=== PATIENT | male | born 1975 | race Caucasian/White ===

== ENCOUNTER 2017-07-19 09:43 | Emergency (ER) | payer OTHER ==
[2017-07-19] MEDS ORDERED: RX INFO: IV CONTRAST WAS GIVEN 1 EACH MISC MISCELLANE PRN (09:53)
[2017-07-19 10:30] LABS: Basophils % (A) 0 %; CH 34.4; CHCM 36.2; Eosinophils # (A) 0.2 k/uL (0-0.7); Eosinophils % (A) 3 %; HCT 43.9 % (39.0-53.0); HDW 2.97; HGB 15.6 gm/dL (13.0-17.5); Luc # (Auto) 0.09; Luc % (Auto) 1; Lymphocytes # (A) 1.1 k/uL (1.0-4.8); Lymphocytes % (A) 13 %; MCH 33.8 pg (25.0-35.0); MCHC 35.4 g/dL (31.0-37.0); MCV 95.3 fL (80.0-100.0); Mean Platelet Volume 7.2; Monocytes # (A) 0.3 k/uL (0-1.0); Monocytes % (A) 4 %; Neutrophils # (A) 6.3 k/uL (1.3-7.7); Neutrophils % (A) 79 %; RDW 13.2 % (11.5-15.5); WBC (Perox) 8.19
[2017-07-19 10:41] LABS: ALT 110 U/L (21-72); AST 69 U/L (17-59); Alkaline Phosphatase 47 U/L (38-126); Amylase 125 U/L (30-110); Anion Gap 13 mmol/L; Blood Urea Nitrogen 15 mg/dL (9-20); Carbon Dioxide 20 mmol/L (22-30); Chloride 106 mmol/L (98-107); Glucose 110 mg/dL (74-99); Non-African American GFR(MDRD) >60 (>60 ml/min/1.73 sqM); Potassium 3.7 mmol/L (3.5-5.1); Sodium 139 mmol/L (137-145); Total Protein 7.2 g/dL (6.3-8.2)
--- NOTE | 2017-07-19 10:47 | CT ---
EXAMINATION TYPE: CT soft tissue neck w con DATE OF EXAM: 07/19/2017 HISTORY: bilateral neck swelling/pain x 1 day COMPARISON: NONE CT DLP: 785 mGycm. Automated Exposure Control for Dose Reduction was Utilized. TECHNIQUE: CT scan of the neck is performed with IV Contrast, patient injected with 100 mL of Omnipa que 300, axial images are obtained, coronal and sagittal reformatted images are reviewed. FINDINGS: Airway: Some secretions are felt filling the vallecula. Nasopharyngeal airway is patent. Thyroid glan d is within normal limits. Mild edematous change is seen in the lung apices. Parotid/submandibular glands: No gross abnormality seen. Carotid/Vascular Structures: No significant plaque or stenosis is seen in the carotid bulb level bila terally. Osseous Structures: There is straightening of cervical spine. There is moderate disc space narrowing and spurring C5-C6 level. Other: There is mild nonspecific fluid and fat stranding over the platysmas muscles which are mildly thickened bilaterally in the bilateral submandibular region with some scattered prominent but subcent imeter lymph nodes identified bilaterally. For reference left carotid space lymph node measures 1.4 x 0.8 cm on axial image 39, similar size lymph node is seen right carotid space on same image. No well -formed fluid collection or drainable abscess is present. IMPRESSION: Nonspecific inflammatory change bilaterally at submandibular level without drainable absc ess. Airway remains patent. Etiology uncertain.
--- NOTE | 2017-07-19 11:27 | ED ---
Recheck HPI - General Chief Complaint: Recheck/Abnormal Lab/Rx Stated Complaint: Syncope Time Seen by Provider: 07/19/17 09:47 Source: patient, EMS, RN notes reviewed Mode of arrival: EMS Limitations: no limitations - History of Present Illness Initial Comments: 42-year-old male presents emergency department via EMS from [facility] for bilateral parotid gland area swelling and near syncope. Patient states that he woke this muscular for hours and went to [facility] today to be evaluated. I was very states that he had very nervous and felt lightheaded but never loss conscious. Patient states he remembers everything. Provider there was concern because he got lightheaded and septum here. Patient denies chest pain, short breath, focal weakness, nausea vomiting. Patient states that he is no felt sick last few days. Patient denies any difficulty swallowing or breathing. - Related Data Home Medications Medication Instructions Recorded Confirmed Acetaminophen Tab [Tylenol Tab] 500 mg PO Q6HR PRN 07/19/17 07/19/17 Loratadine [Claritin] 10 mg PO HS 07/19/17 07/19/17 Previous Rx's Medication Instructions Recorded Amoxicillin/Potassium Clav 1 tab PO Q12HR #20 tab 07/19/17 [Augmentin 875-125 Tablet] Allergies Allergy/AdvReac Type Severity Reaction Status Date / Time No Known Allergies Allergy Verified 07/19/17 09:55 Review of Systems ROS Statement: Those systems with pertinent positive or pertinent negative responses have been documented in the HPI. ROS Other: All systems not noted in ROS Statement are negative. Past Medical History Past Medical History: Atrial Fibrillation History of Any Multi-Drug Resistant Organisms: None Reported Past Surgical History: No Surgical Hx Reported Additional Past Surgical History / Comment(s): vasectomy Past Anesthesia/Blood Transfusion Reactions: No Reported Reaction Past Psychological History: No Psychological Hx Reported Smoking Status: Never smoker Past Alcohol Use History: Occasional Past Drug Use History: None Reported - Past Family History Mother Family Medical History: Diabetes Mellitus General Exam Limitations: no limitations General appearance: alert, in no apparent distress Head exam: Present: atraumatic, normocephalic, normal inspection Eye exam: Present: normal appearance, PERRL, EOMI. Absent: scleral icterus, conjunctival injection, periorbital swelling ENT exam: Present: normal oropharynx, mucous membranes moist, TM's normal bilaterally, normal external ear exam. Absent: normal exam (Bilateral submandibular, mandibular region swelling minimally tender) Neck exam: Present: normal inspection, full ROM, lymphadenopathy. Absent: tenderness, meningismus Respiratory exam: Present: normal lung sounds bilaterally. Absent: respiratory distress, wheezes, rales, rhonchi, stridor Cardiovascular Exam: Present: regular rate, normal rhythm, normal heart sounds. Absent: systolic murmur, diastolic murmur, rubs, gallop, clicks Neurological exam: Present: alert, oriented X3, CN II-XII intact Skin exam: Present: warm, dry, intact, normal color. Absent: rash Course Vital Signs 07/19/17 09:46 Temperature 98.4 F Pulse Rate 88 Respiratory 15 Rate Blood Pressure 127/63 O2 Sat by Pulse 95 Oximetry Medical Decision Making - Medical Decision Making 42-year-old male present emergency department for bilateral mandibular region swelling. This is evident on CT there is mild elevation in amylase and may be related to parotitis. Patient will be started on Augmentin at this time advised follow-up with ENT return parameters were discussed. - Lab Data Result diagrams: 07/19/17 10:00 07/19/17 10:00 Lab Results 07/19/17 07/19/17 07/19/17 Range/Units 10:00 10:00 10:00 WBC 8.0 (3.8-10.6) k/uL RBC 4.60 (4.30-5.90) m/uL Hgb 15.6 (13.0-17.5) gm/dL Hct 43.9 (39.0-53.0) % MCV 95.3 (80.0-100.0) fL MCH 33.8 (25.0-35.0) pg MCHC 35.4 (31.0-37.0) g/dL RDW 13.2 (11.5-15.5) % Plt Count 183 (150-450) k/uL Neutrophils % 79 % Lymphocytes % 13 % Monocytes % 4 % Eosinophils % 3 % Basophils % 0 % Neutrophils # 6.3 (1.3-7.7) k/uL Lymphocytes # 1.1 (1.0-4.8) k/uL Monocytes # 0.3 (0-1.0) k/uL Eosinophils # 0.2 (0-0.7) k/uL Basophils # 0.0 (0-0.2) k/uL Sodium 139 (137-145) mmol/L Potassium 3.7 (3.5-5.1) mmol/L Chloride 106 (98-107) mmol/L Carbon Dioxide 20 L (22-30) mmol/L Anion Gap 13 mmol/L BUN 15 (9-20) mg/dL Creatinine 0.84 (0.66-1.25) mg/dL Est GFR (MDRD) Af Amer >60 (>60 ml/min/1.73 sqM) Est GFR (MDRD) Non-Af >60 (>60 ml/min/1.73 sqM) Glucose 110 H (74-99) mg/dL Calcium 9.0 (8.4-10.2) mg/dL Total Bilirubin 1.0 (0.2-1.3) mg/dL AST 69 H (17-59) U/L ALT 110 H (21-72) U/L Alkaline Phosphatase 47 (38-126) U/L Troponin I <0.012 (0.000-0.034) ng/mL Total Protein 7.2 (6.3-8.2) g/dL Albumin 4.3 (3.5-5.0) g/dL Amylase 125 H (30-110) U/L Lipase 61 (23-300) U/L 07/19/17 11:22 EKG performed at 10:04 normal sinus rhythm with a rate of 75. TN interval 170 QS duration 92 QT/QTC 374/417 Disposition Clinical Impression: Parotitis, acute, Submandibular lymphadenopathy Disposition: HOME SELF-CARE Condition: Stable Instructions: Sialoadenitis (ED), Lymphadenopathy (ED) Additional Instructions: Please return to the Emergency Department if symptoms worsen or any other concerns. Prescriptions: Amoxicillin/Potassium Clav [Augmentin 875-125 Tablet] 1 tab PO Q12HR #20 tab Referrals: Alhaji Rogers DO [Primary Care Provider] - 1-2 days Rojas Collado MD [STAFF PHYSICIAN] - 1-2 days Time of Disposition: 11:22
[2017-07-19 11:40] VITALS: BP 114/62; PULSE 76; RESP 16; TEMP 97.8
== END 2017-07-19 11:39 | disposition home or self-care (01) ==
LOC: EC 09:43
DX: K11.21 Acute sialoadenitis (principal); R59.0 Localized enlarged lymph nodes; Z79.899 Other long term (current) drug therapy
CPT/HCPCS: 99285 ×2; 36415; 93005; 80053; 82150; 83690; 84484; 85025; 87040; 70491; Q9967

== ENCOUNTER → 2017-12-29 | Outpatient (CLI) | payer OTHER ==
--- NOTE | 2017-12-29 16:26 | CT ---
EXAMINATION TYPE: CT soft tissue neck w con DATE OF EXAM: 12/29/2017 COMPARISON: 07/19/2017 HISTORY: Right tonsil mass. CT DLP: 676.8 mGycm CONTRAST: CT scan of the neck is performed with IV Contrast, patient injected with 100 mL of Isovue M300. Contrast enhanced CT of the neck was performed from the skull base through the lung apices. AIRWAY: The glottic and subglottic portions of the airway appear patent and free of mass. Mild full ness right tonsillar pillar without distinct mass. Correlate clinically. SALIVARY GLANDS: The right submandibular gland appears to have been removed in the interval. Left sub mandibular gland is unremarkable. Parotid glands are symmetric and free of nodule or mass. THYROID GLAND: No nodules or masses seen. LYMPH NODES: No adenopathy seen greater than 1cm. LUNG APICES: No nodule or mass is seen. OTHER: Vascular structures are patent. No significant degenerative change of the cervical spine. N o abscess seen. IMPRESSION: 1. Mild fullness right tonsillar pillar without distinct mass. Correlate clinically. 2. Interval removal right submandibular gland.
== END | disposition home or self-care (01) ==
LOC: RADCTMAIN 15:40
PROVIDERS: ATTEND Otolaryngology
DX: R22.1 Localized swelling, mass and lump, neck (principal); Z90.89 Acquired absence of other organs
CPT/HCPCS: 70491; Q9967

== ENCOUNTER 2018-04-03 06:31 | Emergency (ER) | payer OTHER ==
[2018-04-03 07:03] LABS: Basophils % (A) 1 %; Eosinophils # (A) 0.2 k/uL (0-0.7); Eosinophils % (A) 3 %; HCT 39.6 % (39.0-53.0); HGB 14.7 gm/dL (13.0-17.5); Lymphocytes # (A) 1.6 k/uL (1.0-4.8); Lymphocytes % (A) 26 %; MCH 33.2 pg (25.0-35.0); MCHC 37.3 g/dL (31.0-37.0); MCV 89.1 fL (80.0-100.0); Mean Platelet Volume 7.1; Monocytes # (A) 0.4 k/uL (0-1.0); Monocytes % (A) 6 %; Neutrophils % (A) 63 %; Platelet Count 176 k/uL (150-450); RBC 4.44 m/uL (4.30-5.90); RDW 13.7 % (11.5-15.5); WBC 6.3 k/uL (3.8-10.6)
[2018-04-03 07:12] LABS: ALT 79 U/L (21-72); AST 48 U/L (17-59); Albumin 4.5 g/dL (3.5-5.0); Alkaline Phosphatase 43 U/L (38-126); Anion Gap 11 mmol/L; Blood Urea Nitrogen 14 mg/dL (9-20); Carbon Dioxide 23 mmol/L (22-30); Chloride 104 mmol/L (98-107); Glucose 109 mg/dL (74-99); Sodium 138 mmol/L (137-145); Total Bilirubin 0.7 mg/dL (0.2-1.3); Total Protein 7.2 g/dL (6.3-8.2)
[2018-04-03 07:15] LABS: INR 1.1 (<1.2); Partial Thromboplastin Time 23.1 sec (22.0-30.0); Prothrombin Time 10.9 sec (9.0-12.0)
[2018-04-03] MEDS ORDERED: SODIUM CHLORIDE 0.9% 1,000 ML IV STA (07:20)
[2018-04-03 07:21] LABS: Creatine Kinase 106 U/L (55-170)
--- NOTE | 2018-04-03 07:31 | XR ---
EXAMINATION TYPE: XR chest 2V DATE OF EXAM: 04/03/2018 COMPARISON: 08/03/2017 HISTORY: Chest pain TECHNIQUE: Frontal and lateral views of the chest are obtained. FINDINGS: There is no focal air space opacity. No evidence for pneumothorax. No pleural effusion. The cardiac silhouette size is within normal limits. The osseous structures are grossly intact. IMPRESSION: 1. No acute cardiopulmonary process.
[2018-04-03 07:34] LABS: Creatine Kinase MB 0.7 ng/mL (0.0-2.4); Troponin I <0.012 ng/mL (0.000-0.034)
--- NOTE | 2018-04-03 08:27 | CT ---
EXAMINATION TYPE: CT soft tissue neck w con DATE OF EXAM: 04/03/2018 HISTORY: ROSALBA. Neck pain per order. COMPARISON: CT neck December 29, 2017 CT DLP: 848 mGycm. Automated Exposure Control for Dose Reduction was Utilized. TECHNIQUE: CT scan of the neck is performed with IV Contrast, patient injected with 100 mL of Isovue 300, axial images are obtained, coronal and sagittal reformatted images are reviewed. FINDINGS: Airway: Nasopharyngeal and oropharyngeal airways are patent. Mild fullness right tonsillar pillar unc hanged from prior without obvious mass. Some linear secretions in the vallecula are present on curren t study. Hypopharyngeal airway is otherwise felt unremarkable. Thyroid gland is normal. Visualized up per lungs are clear. Parotid/submandibular glands: Right submandibular gland is not visualized and may be surgically absen t. Symmetric unremarkable appearance to product glands is noted. Carotid/Vascular Structures: No significant plaque at carotid bulb level is seen bilaterally. Osseous Structures: There is mild to moderate spurring and disc space narrowing C5-C6 level with post erior spur disc complex. Spine is straightened on sagittal images. Other: Scattered subcentimeter lymph nodes throughout the neck bilaterally are redemonstrated. There is no new greater than 1 cm adenopathy seen. Largest measure lymph node anterior to the carotid and j ugular vessels measures 1.4 x 0.8 cm axial image 29. There is no significant change from prior. IMPRESSION: No significant new finding seen to account for patient's symptoms. No significant change from prior study.
--- NOTE | 2018-04-03 09:01 | ED ---
SOB HPI - General Chief Complaint: Shortness of Breath Stated Complaint: ROSALBA Time Seen by Provider: 04/03/18 07:10 Source: patient, family Mode of arrival: ambulatory Limitations: no limitations - History of Present Illness Initial Comments: 33 years old male has smoked off and on for last 15 years and he also had a chronic tobacco complaining about shortness of breath and some fullness on the right tonsil area he was seen by his family doctor he was also seen by his ENT specialist in a few months ago he has no trouble swallowing he is short-winded denies any fever no chills no nausea no vomiting he is short of breath. A stress test done about 2 months ago he had a CT of the neck Then He Seen the ENT Doctor. He Denies Any Headaches No Blurred Vision No Slurred Speech No Sinus Symptoms of TIA - Related Data Home Medications Medication Instructions Recorded Confirmed Acetaminophen Tab [Tylenol Tab] 1,000 mg PO Q6HR PRN 04/03/18 04/03/18 Cetirizine HCl [Zyrtec] 10 mg PO DAILY PRN 04/03/18 04/03/18 Allergies Allergy/AdvReac Type Severity Reaction Status Date / Time No Known Allergies Allergy Verified 04/03/18 07:36 Review of Systems ROS Statement: Those systems with pertinent positive or pertinent negative responses have been documented in the HPI. ROS Other: All systems not noted in ROS Statement are negative. Past Medical History Past Medical History: Atrial Fibrillation, Chest Pain / Angina Additional Past Medical History / Comment(s): "lumps in testicles" History of Any Multi-Drug Resistant Organisms: None Reported Past Surgical History: No Surgical Hx Reported, Cholecystectomy, Heart Catheterization Additional Past Surgical History / Comment(s): vasectomy, salivary gland stone removal right neck Past Anesthesia/Blood Transfusion Reactions: No Reported Reaction Past Psychological History: Anxiety Smoking Status: Former smoker Past Alcohol Use History: Occasional Past Drug Use History: None Reported - Past Family History Mother Family Medical History: Diabetes Mellitus General Exam - General Exam Comments Initial Comments: General: The patient is awake and alert, in no distress, and does not appear acutely ill. Skin: Skin is warm and dry and no rashes or lesions are noted. Eye: Pupils are equal, round and reactive to light, extra-ocular movements are intact; there is normal conjunctiva bilaterally. Ears, nose, mouth and throat: Wrist mild erythema on the right side of the oropharynx also noticed some fullness in the right anterior cervical area Neck: The neck is supple, there is no tenderness no neck stiffness no signs of any meningitis Cardiovascular: There is a regular rate and rhythm. No murmur, rub or gallop is appreciated. Respiratory: To auscultation bilateral, no wheezing no rhonchi no distress respiratory flanagan noticed Gastrointestinal: Soft, non-distended, non-tender abdomen without masses or organomegaly noted. There is no rebound or guarding present. Bowel sounds are unremarkable. Back: There is no tenderness to palpation in the midline. There is no obvious deformity. Musculoskeletal: Normal ROM, no tenderness, There is no pedal edema. There is no calf tenderness or swelling. No cords were appreciated. Neurological: CN II-XII intact, Cranial nerves III through XII are intact. There are no obvious motor or sensory deficits. Coordination appears grossly intact. Speech is normal. Psychiatric: Cooperative, appropriate mood & affect, normal judgment. Limitations: no limitations Course Vital Signs 04/03/18 06:33 Temperature 98.6 F Pulse Rate 72 Respiratory 20 Rate Blood Pressure 143/76 O2 Sat by Pulse 99 Oximetry EKG is sinus rhythm ventricular rate 74 CA interval is 156 QRS duration is 90 QT /QTc is 372/412 review of this EKG does not reveal any ST elevation noticed some T-wave inversion in leads 3 Medical Decision Making - Lab Data Result diagrams: 04/03/18 06:50 04/03/18 06:50 Lab Results 04/03/18 04/03/18 04/03/18 Range/Units 06:50 06:50 06:50 WBC 6.3 (3.8-10.6) k/uL RBC 4.44 (4.30-5.90) m/uL Hgb 14.7 (13.0-17.5) gm/dL Hct 39.6 (39.0-53.0) % MCV 89.1 (80.0-100.0) fL MCH 33.2 (25.0-35.0) pg MCHC 37.3 H (31.0-37.0) g/dL RDW 13.7 (11.5-15.5) % Plt Count 176 (150-450) k/uL Neutrophils % 63 % Lymphocytes % 26 % Monocytes % 6 % Eosinophils % 3 % Basophils % 1 % Neutrophils # 4.0 (1.3-7.7) k/uL Lymphocytes # 1.6 (1.0-4.8) k/uL Monocytes # 0.4 (0-1.0) k/uL Eosinophils # 0.2 (0-0.7) k/uL Basophils # 0.0 (0-0.2) k/uL PT (9.0-12.0) sec INR (<1.2) APTT (22.0-30.0) sec D-Dimer (<0.60) mg/L FEU Sodium 138 (137-145) mmol/L Potassium 4.0 (3.5-5.1) mmol/L Chloride 104 (98-107) mmol/L Carbon Dioxide 23 (22-30) mmol/L Anion Gap 11 mmol/L BUN 14 (9-20) mg/dL Creatinine 0.70 (0.66-1.25) mg/dL Est GFR (CKD-EPI)AfAm >90 (>60 ml/min/1.73 sqM) Est GFR (CKD-EPI)NonAf >90 (>60 ml/min/1.73 sqM) Glucose 109 H (74-99) mg/dL Calcium 9.0 (8.4-10.2) mg/dL Total Bilirubin 0.7 (0.2-1.3) mg/dL AST 48 (17-59) U/L ALT 79 H (21-72) U/L Alkaline Phosphatase 43 (38-126) U/L Total Creatine Kinase 106 (55-170) U/L CK-MB (CK-2) 0.7 (0.0-2.4) ng/mL CK-MB (CK-2) Rel Index 0.7 Troponin I <0.012 (0.000-0.034) ng/mL NT-Pro-B Natriuret Pep pg/mL Total Protein 7.2 (6.3-8.2) g/dL Albumin 4.5 (3.5-5.0) g/dL Group A Strep Rapid (Negative) 04/03/18 04/03/18 04/03/18 Range/Units 06:50 06:50 06:50 WBC (3.8-10.6) k/uL RBC (4.30-5.90) m/uL Hgb (13.0-17.5) gm/dL Hct (39.0-53.0) % MCV (80.0-100.0) fL MCH (25.0-35.0) pg MCHC (31.0-37.0) g/dL RDW (11.5-15.5) % Plt Count (150-450) k/uL Neutrophils % % Lymphocytes % % Monocytes % % Eosinophils % % Basophils % % Neutrophils # (1.3-7.7) k/uL Lymphocytes # (1.0-4.8) k/uL Monocytes # (0-1.0) k/uL Eosinophils # (0-0.7) k/uL Basophils # (0-0.2) k/uL PT 10.9 (9.0-12.0) sec INR 1.1 (<1.2) APTT 23.1 (22.0-30.0) sec D-Dimer <0.17 (<0.60) mg/L FEU Sodium (137-145) mmol/L Potassium (3.5-5.1) mmol/L Chloride (98-107) mmol/L Carbon Dioxide (22-30) mmol/L Anion Gap mmol/L BUN (9-20) mg/dL Creatinine (0.66-1.25) mg/dL Est GFR (CKD-EPI)AfAm (>60 ml/min/1.73 sqM) Est GFR (CKD-EPI)NonAf (>60 ml/min/1.73 sqM) Glucose (74-99) mg/dL Calcium (8.4-10.2) mg/dL Total Bilirubin (0.2-1.3) mg/dL AST (17-59) U/L ALT (21-72) U/L Alkaline Phosphatase (38-126) U/L Total Creatine Kinase (55-170) U/L CK-MB (CK-2) (0.0-2.4) ng/mL CK-MB (CK-2) Rel Index Troponin I (0.000-0.034) ng/mL NT-Pro-B Natriuret Pep 12 pg/mL Total Protein (6.3-8.2) g/dL Albumin (3.5-5.0) g/dL Group A Strep Rapid (Negative) 04/03/18 Range/Units 07:30 WBC (3.8-10.6) k/uL RBC (4.30-5.90) m/uL Hgb (13.0-17.5) gm/dL Hct (39.0-53.0) % MCV (80.0-100.0) fL MCH (25.0-35.0) pg MCHC (31.0-37.0) g/dL RDW (11.5-15.5) % Plt Count (150-450) k/uL Neutrophils % % Lymphocytes % % Monocytes % % Eosinophils % % Basophils % % Neutrophils # (1.3-7.7) k/uL Lymphocytes # (1.0-4.8) k/uL Monocytes # (0-1.0) k/uL Eosinophils # (0-0.7) k/uL Basophils # (0-0.2) k/uL PT (9.0-12.0) sec INR (<1.2) APTT (22.0-30.0) sec D-Dimer (<0.60) mg/L FEU Sodium (137-145) mmol/L Potassium (3.5-5.1) mmol/L Chloride (98-107) mmol/L Carbon Dioxide (22-30) mmol/L Anion Gap mmol/L BUN (9-20) mg/dL Creatinine (0.66-1.25) mg/dL Est GFR (CKD-EPI)AfAm (>60 ml/min/1.73 sqM) Est GFR (CKD-EPI)NonAf (>60 ml/min/1.73 sqM) Glucose (74-99) mg/dL Calcium (8.4-10.2) mg/dL Total Bilirubin (0.2-1.3) mg/dL AST (17-59) U/L ALT (21-72) U/L Alkaline Phosphatase (38-126) U/L Total Creatine Kinase (55-170) U/L CK-MB (CK-2) (0.0-2.4) ng/mL CK-MB (CK-2) Rel Index Troponin I (0.000-0.034) ng/mL NT-Pro-B Natriuret Pep pg/mL Total Protein (6.3-8.2) g/dL Albumin (3.5-5.0) g/dL Group A Strep Rapid Negative (Negative) Disposition Clinical Impression: Shortness of breath, Sore throat, History of tobacco use Disposition: HOME SELF-CARE Condition: Good Instructions: Dyspnea (ED) Additional Instructions: Considering his shortness of breath and the right tonsillar area for last some penicillin him to ENT for possible scope to make sure there is no atypical cells there and the follow-up on the shortness of breath he would need to see pulmonary medicine, will be consulted Is patient prescribed a controlled substance at d/c from ED?: No Referrals: Sergo Jiang MD [Primary Care Provider] - 1-2 days Sean Pitt MD [STAFF PHYSICIAN] - 1-2 days Yovani Laboy DO [Doctor of Osteopathic Medicine] - 1-2 days
[2018-04-03 09:03] VITALS: RESP 18
[2018-04-03 09:07] VITALS: BP 144/85; PULSE 77; TEMP 97.3
== END 2018-04-03 09:07 | disposition home or self-care (01) ==
LOC: EC 06:31
DX: J02.9 Acute pharyngitis, unspecified (principal); R06.02 Shortness of breath; Z87.891 Personal history of nicotine dependence; I48.91 Unspecified atrial fibrillation; Z95.818 Presence of other cardiac implants and grafts; Z53.8 Procedure and treatment not carried out for other reasons
CPT/HCPCS: 36415; 93005; 85379; 83880; 80053; 82550; 82553; 84484; 85025; 85610; 85730; 87081; 87430; 71046; 70491; 99285; Q9967

== ENCOUNTER → 2018-12-11 | Outpatient (CLI) | payer OTHER ==
--- NOTE | 2018-12-11 09:00 | XR ---
EXAMINATION TYPE: XR orbit detect foreign body DATE OF EXAM: 12/11/2018 COMPARISON: NONE HISTORY: 43-year-old male MRI clearance, memory loss, patient Hollis metal. TECHNIQUE: 3 views FINDINGS: No retained metal debris seen within either orbit. IMPRESSION: No retained metallic foreign body seen in either orbit. Clear for MRI.
--- NOTE | 2018-12-11 11:41 | MR ---
MR brain without contrast HISTORY: Memory loss, head trauma Multiplanar multisequence imaging through the brain No comparisons There is no restricted diffusion. There is no hemorrhage or hydrocephalus. Cerebellopontine angles, c orpus callosum, pituitary, cervical medullary junction are normal. There are normal vascular flow voi ds present. The orbits show symmetric appearance. Brain signal is maintained. Mild mucosal disease pr esent in the ethmoid air cells, maxillary sinuses. IMPRESSION: Mild sinus disease. No significant brain abnormality is evident.
== END | disposition home or self-care (01) ==
LOC: RADMRIMAIN 08:41
PROVIDERS: ATTEND Psychiatry & Neurology Neurology
DX: R41.3 Other amnesia (principal)
CPT/HCPCS: 70030; 70551

== ENCOUNTER → 2019-05-28 | Outpatient (CLI) | payer OTHER ==
--- NOTE | 2019-05-28 08:41 | XR ---
EXAMINATION TYPE: XR tibia fibula RT DATE OF EXAM: 05/28/2019 CLINICAL HISTORY: Painful lump or mass. TECHNIQUE: Two views of the right leg are obtained. COMPARISON: None. FINDINGS: There is no acute fracture or dislocation seen in the right tibia or fibula. The right kn ee and ankle joints appear within normal limits. The overlying soft tissue appears unremarkable. IMPRESSION: As above. Contrast-enhanced MRI is noted more sensitive to evaluate soft tissue masses.
== END ==
LOC: RADXRMAIN 08:00
PROVIDERS: ATTEND Internal Medicine
DX: R22.41 Localized swelling, mass and lump, right lower limb (principal)

== ENCOUNTER → 2019-06-17 | Outpatient (CLI) | payer OTHER ==
--- NOTE | 2019-06-17 22:39 | MR ---
EXAMINATION TYPE: MR tib fib RT wo con DATE OF EXAM: 06/17/2019 COMPARISON: Right leg x-ray May 28, 2019. HISTORY: Rt lower leg pain, painful lump on distal lateral rt leg Standard multiplanar, multisequence MRI departmental protocol Multiplanar, multisequence images of the bilateral legs were acquired. FINDINGS: A vitamin E marker is placed in the area of clinical concern lateral right mid to distal le g axial image 34. At this level near border of the deep subcutaneous fat and peripheral muscles felt to be intramuscular compartment in location there is well-defined oval-shaped lesion measuring 2.0 cm craniocaudal dimension coronal image 15 x 1.5 cm transversely and 1.4 cm AP diameter X image 36 that is isointense to muscle on T1-weighted images and hyperintense on T2-weighted images without fat sat uration. Seen best on sagittal images there appears to be surrounding subcutaneous fat suggesting it is in between muscle fibers of the anterior and lateral compartment. Remainder of bilateral lower extremities show symmetric and satisfactory muscle bulk. Osseous structu res are maintained bilaterally. IMPRESSION: Lesion right lower extremity as detailed above favor nonaggressive in etiology, because o f patient's symptoms of pain, surgical excision is likely warranted.
== END | disposition home or self-care (01) ==
LOC: RADMRIMAIN 20:39
PROVIDERS: ATTEND Orthopaedic Surgery Sports Medicine
DX: M62.89 Other specified disorders of muscle (principal)

== ENCOUNTER → 2019-09-12 | Outpatient (CLI) | payer OTHER ==
--- NOTE | 2019-09-12 10:52 | XR ---
EXAMINATION TYPE: XR hand complete LT DATE OF EXAM: 09/12/2019 CLINICAL HISTORY: Left thumb injury and pain TECHNIQUE: Frontal, lateral and oblique images of the left hand are obtained. COMPARISON: None. FINDINGS: There is no acute fracture/dislocation evident in the left hand. The joint spaces in the l eft hand appear within normal limits. The overlying soft tissue appears unremarkable. No radiopaque foreign body seen. No osseous laceration. IMPRESSION: There is no acute fracture or dislocation in the left hand. No opaque foreign body.
== END | disposition home or self-care (01) ==
LOC: RADXRMAIN 09:58
PROVIDERS: ATTEND Emergency Medicine
DX: S61.33 Puncture wound without foreign body of finger with damage to nail (principal)

== ENCOUNTER → 2019-10-15 | Outpatient (CLI) | payer OTHER ==
--- NOTE | 2019-10-15 09:40 | XR ---
EXAMINATION TYPE: XR finger LT DATE OF EXAM: 10/15/2019 COMPARISON: NONE HISTORY: Left thumb pain after trauma. TECHNIQUE: 3 views of the left thumb were obtained FINDINGS: Soft tissue swelling is seen of the left thumb with dorsal laceration at the interphalangea l joint. No radiopaque foreign body is seen. No osseous laceration is identified. No acute fracture i s seen. IMPRESSION: Soft tissue laceration and soft tissue swelling of the left thumb without osseous lacerat ion or fracture.
== END | disposition home or self-care (01) ==
LOC: RADXRMAIN 09:11
PROVIDERS: ATTEND Emergency Medicine
DX: S61.012D Laceration without foreign body of left thumb without damage to nail, subsequent encounter (principal)

== ENCOUNTER → 2020-07-27 | Outpatient (CLI) | payer OTHER | END | disposition home or self-care (01) | LOC: LABWHC1 11:52 | PROVIDERS: ATTEND Nurse Practitioner Adult Health | DX: R06.02 Shortness of breath (principal); R50.9 Fever, unspecified | CPT/HCPCS: U0003; C9803 ==

== ENCOUNTER 2020-07-28 02:51 | Observation (INO) | payer OTHER ==
[2020-07-28] MEDS ORDERED: SODIUM CHLORIDE 0.9% 2,000 ML IV ONE (02:58)
[2020-07-28 03:15] LABS: Basophils # (A) 0.1 k/uL (0-0.2); Basophils % (A) 1 %; Eosinophils # (A) 0.1 k/uL (0-0.7); Eosinophils % (A) 1 %; HCT 44.5 % (39.0-53.0); HGB 15.5 gm/dL (13.0-17.5); Lymphocytes # (A) 0.7 k/uL (1.0-4.8); Lymphocytes % (A) 11 %; MCH 31.5 pg (25.0-35.0); MCHC 34.7 g/dL (31.0-37.0); MCV 90.6 fL (80.0-100.0); Mean Platelet Volume 7.1; Monocytes # (A) 0.5 k/uL (0-1.0); Monocytes % (A) 7 %; Neutrophils # (A) 5.4 k/uL (1.3-7.7); Neutrophils % (A) 79 %; Platelet Count 138 k/uL (150-450); RBC 4.92 m/uL (4.30-5.90); RDW 12.9 % (11.5-15.5); WBC 6.8 k/uL (3.8-10.6)
[2020-07-28 03:24] LABS: INR 1.2 (<1.2); Partial Thromboplastin Time 24.2 sec (22.0-30.0); Prothrombin Time 12.2 sec (9.0-12.0)
[2020-07-28 03:39] LABS: ALT 124 U/L (4-49); AST 94 U/L (17-59); African American GFR (CKD) >90 (>60 ml/min/1.73 sqM); Albumin 4.1 g/dL (3.5-5.0); Alkaline Phosphatase 47 U/L (38-126); Anion Gap 9 mmol/L; Blood Urea Nitrogen 12 mg/dL (9-20); Calcium 8.8 mg/dL (8.4-10.2); Carbon Dioxide 22 mmol/L (22-30); Chloride 102 mmol/L (98-107); Creatine Kinase 171 U/L (55-170); Glucose 124 mg/dL (74-99); Non-African American GFR(CKD) >90 (>60 ml/min/1.73 sqM); Potassium 3.8 mmol/L (3.5-5.1); Sodium 133 mmol/L (137-145); Total Bilirubin 1.4 mg/dL (0.2-1.3); Total Protein 7.2 g/dL (6.3-8.2)
[2020-07-28 03:49] LABS: Appearance,Urine Clear (Clear); Bilirubin,Urine Negative (Negative); Blood,Urine Trace (Negative); Color,Urine Yellow; Glucose,Urine (UA) Negative (Negative); Ketones,Urine 1+ (Negative); Leukocyte Esterase,Urine Negative (Negative); Mucus,Urine Rare /hpf; Nitrite,Urine Negative (Negative); Protein,Urine Negative (Negative); RBC,Urine 2 /hpf (0-5); Specific Gravity,Urine 1.011 (1.001-1.035); Urobilinogen,Urine <2.0 mg/dL (<2.0); WBC,Urine <1 /hpf (0-5)
--- NOTE | 2020-07-28 03:52 | ED ---
General Adult HPI - General Chief complaint: Extremity Problem,Nontraumatic Stated complaint: RT hip pain Time Seen by Provider: 07/28/20 02:55 Source: patient, EMS Mode of arrival: EMS Limitations: no limitations - History of Present Illness Initial comments: Adalid is a previously healthy 45-year-old male who has been experiencing fevers and body aches for couple of days. He was exposed to COVID 19 and his workplace. He was tested yesterday but has not gotten results. Patient reports that he woke this morning to use the restroom but had excruciating pain in his right hip, at upon attempting to stand the pain was so severe patient reports he almost lost control of his bowel or bladder, he was unable to ambulate. His contacted EMS for transport to the hospital. EMS noted the patient was febrile, tachycardic with an oxygen saturation of 90% on room air. His pain was treated with fentanyl with significant improvement. - Related Data Home Medications Medication Instructions Recorded Confirmed Acetaminophen Tab [Tylenol Tab] 1,000 mg PO Q6HR PRN 04/03/18 04/03/18 Cetirizine HCl [Zyrtec] 10 mg PO DAILY PRN 04/03/18 04/03/18 Allergies Allergy/AdvReac Type Severity Reaction Status Date / Time No Known Allergies Allergy Verified 07/28/20 02:58 Review of Systems ROS Statement: Those systems with pertinent positive or pertinent negative responses have been documented in the HPI. ROS Other: All systems not noted in ROS Statement are negative. Past Medical History Past Medical History: Atrial Fibrillation, Chest Pain / Angina Additional Past Medical History / Comment(s): "lumps in testicles" History of Any Multi-Drug Resistant Organisms: None Reported Past Surgical History: No Surgical Hx Reported, Cholecystectomy, Heart Catheterization Additional Past Surgical History / Comment(s): vasectomy, salivary gland stone removal right neck Past Anesthesia/Blood Transfusion Reactions: No Reported Reaction Past Psychological History: Anxiety Smoking Status: Former smoker Past Alcohol Use History: Occasional Past Drug Use History: None Reported - Past Family History Mother Family Medical History: Diabetes Mellitus General Exam - General Exam Comments Initial Comments: Physical Exam GENERAL: Ill appearing 45-year-old male, somewhat diaphoretic HENT: Normocephalic, Atraumatic. EYES: PERRL, EOMI PULMONARY: Unlabored respirations. No audible rales rhonchi or wheezing was noted. CARDIOVASCULAR: Tachycardic, regular ABDOMEN: Soft and nontender with normal bowel sounds. SKIN: Hot to the touch Skin is clear with no lesions or rashes and otherwise unremarkable. : Deferred NEUROLOGIC: Patient is alert and oriented x3. Moving all extremities spontaneously MUSCULOSKELETAL: No redness or swelling of the right hip, pain with active range of motion, pain with passive internal rotation but able to flex the hip passively with minimal pain PSYCHIATRIC: Normal psychiatric evaluation. Limitations: no limitations Course Vital Signs 07/28/20 02:52 Temperature 101.3 F H Pulse Rate 109 H Respiratory 20 Rate Blood Pressure 128/91 O2 Sat by Pulse 95 Oximetry EKG Findings - EKG Comments: EKG Findings:: EKG was obtained due to tachycardia, EKG obtained at 3:13 AM, rate is 107 rhythm is sinus tachycardia normal axis, normal intervals, SD 144, QRS 84, QTC 432, there are no acute ST elevations or depressions there is no evidence of acute ischemia or infarction. Medical Decision Making - Medical Decision Making Septic workup initiated CRP and ESR ordered for evaluation of inflammation X-ray of the hip was unremarkable Labs resulted with no leukocytosis, elevation of the inflammatory markers Given the patient doesn't have a pulmonary history and had an option saturation of only 90% known exposure to COVID, tachycardic fever relative hypoxia and chest x-ray findings concerning for COVID I do feel he warrants admission to the hospital for further evaluation in addition I recommended he be evaluated by orthopedics due to this severe hip pain. Patient care was discussed with Dr. Garcia of the [facility] physician group who accepts the admission. - Lab Data Result diagrams: 07/28/20 03:02 07/28/20 03:02 Lab Results 07/28/20 07/28/20 07/28/20 Range/Units 03:02 03:02 03:02 WBC 6.8 (3.8-10.6) k/uL RBC 4.92 (4.30-5.90) m/uL Hgb 15.5 (13.0-17.5) gm/dL Hct 44.5 (39.0-53.0) % MCV 90.6 (80.0-100.0) fL MCH 31.5 (25.0-35.0) pg MCHC 34.7 (31.0-37.0) g/dL RDW 12.9 (11.5-15.5) % Plt Count 138 L (150-450) k/uL Neutrophils % 79 % Lymphocytes % 11 % Monocytes % 7 % Eosinophils % 1 % Basophils % 1 % Neutrophils # 5.4 (1.3-7.7) k/uL Lymphocytes # 0.7 L (1.0-4.8) k/uL Monocytes # 0.5 (0-1.0) k/uL Eosinophils # 0.1 (0-0.7) k/uL Basophils # 0.1 (0-0.2) k/uL ESR 8 (0-15) mm/hr PT 12.2 H (9.0-12.0) sec INR 1.2 H (<1.2) APTT 24.2 (22.0-30.0) sec Sodium (137-145) mmol/L Potassium (3.5-5.1) mmol/L Chloride (98-107) mmol/L Carbon Dioxide (22-30) mmol/L Anion Gap mmol/L BUN (9-20) mg/dL Creatinine (0.66-1.25) mg/dL Est GFR (CKD-EPI)AfAm (>60 ml/min/1.73 sqM) Est GFR (CKD-EPI)NonAf (>60 ml/min/1.73 sqM) Glucose (74-99) mg/dL Plasma Lactic Acid Robert (0.7-2.0) mmol/L Calcium (8.4-10.2) mg/dL Total Bilirubin (0.2-1.3) mg/dL AST (17-59) U/L ALT (4-49) U/L Alkaline Phosphatase (38-126) U/L Creatine Kinase (55-170) U/L C-Reactive Protein (<10.0) mg/L Total Protein (6.3-8.2) g/dL Albumin (3.5-5.0) g/dL Urine Color Yellow Urine Appearance Clear (Clear) Urine pH 7.0 (5.0-8.0) Ur Specific [place] 1.011 (1.001-1.035) Urine Protein Negative (Negative) Urine Glucose (UA) Negative (Negative) Urine Ketones 1+ H (Negative) Urine Blood Trace H (Negative) Urine Nitrite Negative (Negative) Urine Bilirubin Negative (Negative) Urine Urobilinogen <2.0 (<2.0) mg/dL Ur Leukocyte Esterase Negative (Negative) Urine RBC 2 (0-5) /hpf Urine WBC <1 (0-5) /hpf Urine Mucus Rare H (None) /hpf 07/28/20 07/28/20 Range/Units 03:02 03:02 WBC (3.8-10.6) k/uL RBC (4.30-5.90) m/uL Hgb (13.0-17.5) gm/dL Hct (39.0-53.0) % MCV (80.0-100.0) fL MCH (25.0-35.0) pg MCHC (31.0-37.0) g/dL RDW (11.5-15.5) % Plt Count (150-450) k/uL Neutrophils % % Lymphocytes % % Monocytes % % Eosinophils % % Basophils % % Neutrophils # (1.3-7.7) k/uL Lymphocytes # (1.0-4.8) k/uL Monocytes # (0-1.0) k/uL Eosinophils # (0-0.7) k/uL Basophils # (0-0.2) k/uL ESR (0-15) mm/hr PT (9.0-12.0) sec INR (<1.2) APTT (22.0-30.0) sec Sodium 133 L (137-145) mmol/L Potassium 3.8 (3.5-5.1) mmol/L Chloride 102 (98-107) mmol/L Carbon Dioxide 22 (22-30) mmol/L Anion Gap 9 mmol/L BUN 12 (9-20) mg/dL Creatinine 0.89 (0.66-1.25) mg/dL Est GFR (CKD-EPI)AfAm >90 (>60 ml/min/1.73 sqM) Est GFR (CKD-EPI)NonAf >90 (>60 ml/min/1.73 sqM) Glucose 124 H (74-99) mg/dL Plasma Lactic Acid Robert 1.0 (0.7-2.0) mmol/L Calcium 8.8 (8.4-10.2) mg/dL Total Bilirubin 1.4 H (0.2-1.3) mg/dL AST 94 H (17-59) U/L ALT 124 H (4-49) U/L Alkaline Phosphatase 47 (38-126) U/L Creatine Kinase 171 H (55-170) U/L C-Reactive Protein 40.0 H (<10.0) mg/L Total Protein 7.2 (6.3-8.2) g/dL Albumin 4.1 (3.5-5.0) g/dL Urine Color Urine Appearance (Clear) Urine pH (5.0-8.0) Ur Specific [place] (1.001-1.035) Urine Protein (Negative) Urine Glucose (UA) (Negative) Urine Ketones (Negative) Urine Blood (Negative) Urine Nitrite (Negative) Urine Bilirubin (Negative) Urine Urobilinogen (<2.0) mg/dL Ur Leukocyte Esterase (Negative) Urine RBC (0-5) /hpf Urine WBC (0-5) /hpf Urine Mucus (None) /hpf Disposition Clinical Impression: Exposure to COVID-19 virus, Fever, Hypoxia, Hip pain, acute Disposition: ADMITTED IP TO THIS HOSP Condition: Stable Is patient prescribed a controlled substance at d/c from ED?: No
[2020-07-28 04:00] LABS: Erythrocyte Sedimentation Rate 8 mm/hr (0-15)
[2020-07-28] MEDS ORDERED: NALOXONE 0.4 MG/ML 1 ML VIAL IV PRN (04:46)
[2020-07-28] MEDS ORDERED: IBUPROFEN 400 MG TAB PO PRN (04:46)
[2020-07-28] MEDS ORDERED: MORPHINE SULFATE 4 MG/ML SYRINGE IV PRN (04:46)
--- NOTE | 2020-07-28 04:50 | XR ---
EXAM: XR Right Hip With Pelvis When Performed, 2 or 3 Views CLINICAL HISTORY: ITS.REASON XR Reason: fever, ?COVID TECHNIQUE: Two or three views of the right hip with pelvis when performed. COMPARISON: No relevant prior studies available. FINDINGS: Bones/joints: Unremarkable. No acute fracture. No dislocation. No significant degenerative changes. Soft tissues: No significant overlying soft tissue abnormality identified radiographically. No radiopaque foreign body. IMPRESSION: No acute findings in the right hip.
--- NOTE | 2020-07-28 04:51 | XR ---
EXAM: XR Chest, 1 View CLINICAL HISTORY: ITS.REASON XR Reason: fever, ?COVID TECHNIQUE: Frontal view of the chest. COMPARISON: No relevant prior studies available. FINDINGS: Lungs: Diminished lung volumes. No focal consolidation. The pulmonary vasculature demonstrates no significant radiographic abnormality. Pleural space: Unremarkable. No pneumothorax. No large pleural effusion. Heart: Unremarkable. No cardiomegaly. Mediastinum: No significant abnormality identified. The trachea is midline. Bones/joints: Unremarkable. IMPRESSION: No focal consolidation or acute cardiopulmonary process identified.
[2020-07-28] MEDS: SODIUM CHLORIDE 0.9% 1,000 ML IV SCH ×3 (05:13→20:14)
[2020-07-28] MEDS: ACETAMINOPHEN TAB 325 MG TAB PO PRN ×4 (05:16→22:57)
[2020-07-28] MEDS: ENOXAPARIN 40 MG/0.4 ML SYRINGE SQ SCH (08:20)
[2020-07-28] MEDS ORDERED: INFLUENZA VACCINE (6 MOS+) 60 MCG/0.5 ML SYRINGE IM ONE (11:11)
--- NOTE | 2020-07-28 11:59 | P.HPIM ---
History of Present Illness H&P Date: 07/28/20 Chief Complaint: Shortness of breath and cough This is a 45-year-old male with no significant past medical history who presented to the emergency room with worsening shortness of breath and cough. Patient said that symptoms started Monday and is being getting progressively worse. He described having fevers and generalized body aches for the past couple of days. He is also having cough that is productive of greenish sputum. Patient reports one-time episode of right-sided flank/chest pain that happened on Monday and quickly resolved. Patient reported that one of his coworkers was diagnosed with COVID few days ago that he did not come in direct contact with her rather he was in contact with a third person that was in contact with the patient. Patient said that he's having shortness of breath even at rest. He denies any history of lung disease. He is a former smoker and quit 7 years ago. He is usually fairly active. He denies any known medical problems. Patient was evaluated in the ER and was found to have evidence of sepsis without septic shock. He was treated with aggressive IV fluid hydration. He will be admitted to the hospital for further management. Review of Systems Review of system: 14 points review of systems were obtained and were negative except to what were mentioned in the HPI. Past Medical History Past Medical History: Atrial Fibrillation, Chest Pain / Angina Additional Past Medical History / Comment(s): "lumps in testicles" History of Any Multi-Drug Resistant Organisms: None Reported Past Surgical History: No Surgical Hx Reported, Cholecystectomy, Heart Catheterization Additional Past Surgical History / Comment(s): vasectomy, salivary gland stone removal right neck Past Anesthesia/Blood Transfusion Reactions: No Reported Reaction Past Psychological History: Anxiety Smoking Status: Former smoker Past Alcohol Use History: Occasional Past Drug Use History: None Reported - Past Family History Mother Family Medical History: Diabetes Mellitus Father Additional Family Medical History / Comment(s): hypotension. Medications and Allergies Home Medications Medication Instructions Recorded Confirmed Type Acetaminophen Tab [Tylenol Tab] 500 mg PO Q6HR PRN 04/03/18 07/28/20 History Cetirizine HCl [Zyrtec] 10 mg PO DAILY@1900 04/03/18 07/28/20 History Cholecalciferol [Vitamin D3 (25 1,000 unit PO DAILY 07/28/20 07/28/20 History Mcg = 1000 Iu)] Fluticasone Nasal [place] [Flonase 2 spr EA NOSTRIL DAILY 07/28/20 07/28/20 History Nasal [place]] Multivitamins, Thera [Multivitamin 1 tab PO DAILY 07/28/20 07/28/20 History (formulary)] Allergies Allergy/AdvReac Type Severity Reaction Status Date / Time No Known Allergies Allergy Verified 07/28/20 06:06 Physical Exam Vitals: Vital Signs Temp Pulse Resp BP Pulse Ox 07/28/20 08:20 89 18 106/73 97 07/28/20 07:10 99.0 F 81 18 108/68 97 07/28/20 06:30 98.9 F 91 22 104/65 95 07/28/20 05:30 100.3 F H 82 20 103/69 96 07/28/20 04:30 94 22 99/72 95 07/28/20 02:52 101.3 F H 109 H 20 128/91 95 Intake and Output 07/27/20 07/28/20 07/28/20 22:59 06:59 14:59 Other: Weight 117.934 kg General: The patient is awake and alert, in no distress Eye: there is normal conjunctiva bilaterally. Neck: The neck is supple, there is no JVD. Cardiovascular: Normal S1-S2, no S3-S4, no murmurs. Respiratory: Lungs clear to auscultation bilaterally Gastrointestinal: Abdomen is soft, nontender Musculoskeletal: There is no pedal edema. Neurological:. Speech is normal. Skin: Skin is warm and dry Results CBC & Chem 7: 07/28/20 03:02 07/28/20 03:02 Labs: Abnormal Lab Results - Last 24 Hours (Table) 07/28/20 07/28/20 07/28/20 Range/Units 03:02 03:02 03:02 Plt Count 138 L (150-450) k/uL Lymphocytes # 0.7 L (1.0-4.8) k/uL PT 12.2 H (9.0-12.0) sec INR 1.2 H (<1.2) D-Dimer (<0.60) mg/L FEU Sodium (137-145) mmol/L Glucose (74-99) mg/dL Total Bilirubin (0.2-1.3) mg/dL AST (17-59) U/L ALT (4-49) U/L Creatine Kinase (55-170) U/L C-Reactive Protein (<10.0) mg/L Urine Ketones 1+ H (Negative) Urine Blood Trace H (Negative) Urine Mucus Rare H (None) /hpf 07/28/20 07/28/20 Range/Units 03:02 08:24 Plt Count (150-450) k/uL Lymphocytes # (1.0-4.8) k/uL PT (9.0-12.0) sec INR (<1.2) D-Dimer 0.63 H (<0.60) mg/L FEU Sodium 133 L (137-145) mmol/L Glucose 124 H (74-99) mg/dL Total Bilirubin 1.4 H (0.2-1.3) mg/dL AST 94 H (17-59) U/L ALT 124 H (4-49) U/L Creatine Kinase 171 H (55-170) U/L C-Reactive Protein 40.0 H (<10.0) mg/L Urine Ketones (Negative) Urine Blood (Negative) Urine Mucus (None) /hpf Assessment and Plan Assessment: 1. Acute bacterial bronchitis, with no evidence of pneumonia on chest x-ray. I will start the patient on IV ceftriaxone 1 g daily and oral azithromycin 500 mg daily. I would order sputum culture. 2. Acute hypoxic respiratory failure requiring 2 L of oxygen via nasal cannula. Probably secondary to underlying bronchitis. D-dimer slightly above normal ran ge is 0.63. Given tachycardia and hypoxia and episode of right-sided chest pain reported by patient on Monday I would obtain CT angiogram to rule out underlying PE. 3. Severe sepsis without septic shock, lactic acid normal. Blood culture sent and pending. COVID-19 PCR done yesterday negative. Influenza screen negative. Urinalysis unremarkable. 4. Mild transaminitis, I'll be secondary to sepsis. Repeat lab work in the morning. 5. DVT prophylaxis with subcu Lovenox Today, I reviewed his medication list and lab work results. LDH and d-dimer only slightly elevated. Other lab work mostly within acceptable range. Awaiting CT angiogram to rule out PE. Continue aggressive IV fluid hydration with normal saline at 130 mL per hour. Consult pulmonology for further evaluation. The patient is placed in observation with an anticipated less than 2 midnight stay for evaluation of the medical problems noted above. CODE STATUS: Full code Anticipated discharge date: To be determined based on clinical course Anticipated discharge place: Home A total of 45 minutes was spent on the care of this complex patient more than 50% of the time was spent in counseling and care coordination.
[2020-07-28] MEDS: AZITHROMYCIN 500 MG TAB PO SCH (12:45)
--- NOTE | 2020-07-28 13:04 | CT ---
EXAMINATION TYPE: CT chest angio for PE DATE OF EXAM: 07/28/2020 COMPARISON: Chest x-ray earlier today HISTORY: Tightness in chest, shortness of breath CT DLP: 784.8 mGycm Automated exposure control for dose reduction was used. CONTRAST: CTA Chest for pulmonary embolism performed with with IV Contrast, patient injected with 100 mL of Iso micheline 370. MIP images are created on CT scanner and reviewed. FINDINGS: LUNGS: Dependent atelectasis bilateral lower lobes. No suspicious focal consolidation. Additional mil d to moderate scattered linear atelectasis in the lower lobes. No pleural effusion or pneumothorax. L ow lung volumes. MEDIASTINUM: There is suboptimal bolus with near equal contrast the right left heart systems but no c onvincing CT evidence for acute pulmonary embolism. There are no greater than 1 cm hilar or mediasti nal lymph nodes. No cardiomegaly or pericardial effusion is seen. OTHER: Visualized liver is hypodense consistent with diffuse fatty infiltration. IMPRESSION: No CT evidence for acute pulmonary embolism. Low lung volumes without suspicious acute pu lmonary process.
[2020-07-28 15:17] LABS: Ferritin 545.3 ng/mL (22.0-322.0)
[2020-07-28] MEDS: LORATADINE 10 MG TAB PO SCH (20:14)
[2020-07-29] MEDS: ACETAMINOPHEN TAB 325 MG TAB PO PRN ×3 (02:46→19:45)
[2020-07-29] MEDS: SODIUM CHLORIDE 0.9% 1,000 ML IV SCH ×2 (02:48→15:46)
[2020-07-29 06:30] LABS: Basophils # (A) 0.1 k/uL (0-0.2); Basophils % (A) 2 %; Eosinophils % (A) 1 %; HCT 42.1 % (39.0-53.0); HGB 14.4 gm/dL (13.0-17.5); Lymphocytes % (A) 20 %; MCH 31.5 pg (25.0-35.0); MCHC 34.2 g/dL (31.0-37.0); MCV 92.1 fL (80.0-100.0); Mean Platelet Volume 7.4; Monocytes # (A) 0.4 k/uL (0-1.0); Monocytes % (A) 8 %; Neutrophils # (A) 3.3 k/uL (1.3-7.7); Neutrophils % (A) 67 %; Platelet Count 104 k/uL (150-450); RBC 4.57 m/uL (4.30-5.90); RDW 13.1 % (11.5-15.5)
[2020-07-29] MEDS: ENOXAPARIN 40 MG/0.4 ML SYRINGE SQ SCH (07:25)
[2020-07-29] MEDS: FLUTICASONE 50MCG/SPRAY NASAL 16GM EA NOSTRIL SCH (07:25)
[2020-07-29] MEDS: MULTIVITAMINS, THERA 1 EACH TAB PO SCH (07:26)
[2020-07-29] MEDS: AZITHROMYCIN 500 MG TAB PO SCH (07:26)
[2020-07-29] MEDS: CHOLECALCIFEROL 1,000 UNIT TAB PO SCH (07:26)
[2020-07-29] MEDS: IBUPROFEN 800 MG TAB PO PRN ×2 (08:59→21:27)
--- NOTE | 2020-07-29 10:04 | P.PN ---
Subjective Progress Note Date: 07/29/20 Principal diagnosis: Sepsis Patient is still spiking fevers despite being treated with antibiotic and Tylenol. Patient is feeling fairly well. He is having minimal cough. Denies any significant congestion or flulike symptoms. He reported having diarrhea with 3 loose bowel movements yesterday and 1 loose/watery this morning. No blood in stool. No abdominal pain. No nausea or vomiting. Objective - Vital Signs Vital signs: Vital Signs Temp 103.0 F H 07/29/20 07:39 Pulse 110 H 07/29/20 07:00 Resp 18 07/29/20 07:25 BP 113/74 07/29/20 07:00 Pulse Ox 94 L 07/29/20 07:00 Intake & Output 07/28/20 07/29/20 07/29/20 18:59 06:59 18:59 Intake Total 520 1710 Balance 520 1710 Weight 117.934 kg Intake: Intake, IV Titration 520 1110 Amount Sodium Chloride 0.9% 1, 520 1060 000 ml @ 130 mls/hr IV . [id number] JOHNNY Rx#:[id number] cefTRIAXone 1 gm In 50 Sodium Chloride 0.9% 50 ml @ 100 mls/hr IVPB Q24HR JOHNNY Rx#:[id number] Oral 600 Other: # Voids 1 4 - Exam General: The patient is awake and alert, in no distress Eye: there is normal conjunctiva bilaterally. Neck: The neck is supple, there is no JVD. Cardiovascular: Normal S1-S2, no S3-S4, no murmurs. Respiratory: Lungs clear to auscultation bilaterally Gastrointestinal: Abdomen is soft, nontender Musculoskeletal: There is no pedal edema. Neurological:. Speech is normal. Skin: Skin is warm and dry - Labs CBC & Chem 7: 07/29/20 05:59 07/28/20 03:02 Labs: Abnormal Lab Results - Last 24 Hours (Table) 07/28/20 07/29/20 Range/Units 08:24 05:59 Plt Count 104 L (150-450) k/uL Ferritin 545.3 H (22.0-322.0) ng/mL Microbiology - Last 24 Hours (Table) 07/28/20 03:02 Blood Culture - Preliminary Blood No Growth after 24 hours 07/28/20 03:02 Blood Culture - Preliminary Blood No Growth after 24 hours Assessment and Plan Assessment: This is a 45-year-old male with no significant past medical history who presented to the emergency room with fevers, muscle aches, and cough. Patient was evaluated in the ER and admitted to the hospital for further management of his medical problems noted below. 1. Acute bacterial bronchitis, with no evidence of pneumonia on chest x-ray. Continue IV ceftriaxone 1 g daily and oral azithromycin 500 mg daily. sputum culture ordered 2. Acute hypoxic respiratory failure: Resolved. Probably secondary to underlying bronchitis. D-dimer slightly above normal range is 0.63. CT angiogram negative for PE 3. Severe sepsis without septic shock, lactic acid normal. Blood culture negative to date. COVID-19 PCR done yesterday negative. Influenza screen negative. Urinalysis unremarkable. 4. Diarrhea, check stool for C. diff 5. Persistent fever, despite antibiotic and Tylenol. I will consult infectious disease for further evaluation 6. Mild transaminitis, maybe secondary to sepsis. Repeat lab work pending 7. DVT prophylaxis with subcu Lovenox Today, I reviewed his medication list and lab work results. Change normal saline from 130 mL per hour to 50 mL per hour. Continue supportive care and antibiotic. Appreciate franchise consultant's recommendations.
--- NOTE | 2020-07-29 15:09 | CONS ---
CONSULTATION PULMONARY/CRITICAL CARE CONSULTATION: 07/29/2020 REASON FOR CONSULTATION: Viral-like illness/flu-like illness. This is a 45-year-old gentleman who presented to the emergency department via EMS on July 28, 2020. He apparently had been having fevers at home as well as body aches. He was not feeling well for about 4 days prior to admission. He apparently was considered exposed to COVID-19 in the workplace. He was tested for COVID-19 AND apparently THE test results were negative. In addition, he complains of pain in the right hip. He apparently got up in the morning to go to the bathroom and noted that his right hip was quite painful to touch. Denies any trauma. He does also admits to some minimal cough without phlegm production and some shortness of breath. Because of the fact that he was having fever, complaining of fever, having shortness of breath and cough, the patient is evaluated for COVID-19. The patient's COVID testing apparently turned out to be negative. Currently, he is feeling much better. HOME MEDICATIONS: Reviewed. He is on Tylenol and Zyrtec. ALLERGIES: Denied. MEDICAL HISTORY: A previous history of a remote history of atrial fibrillation, status post ablation, and chest pain. He also apparently complains of lumps in his testicles. SURGICAL HISTORY: Includes cholecystectomy, heart catheterization, vasectomy, and a salivary gland stone removal on the right neck area. SOCIAL HISTORY: Positive for previous tobacco use. Does not smoke currently. Denies illicit drug use. Drinks occasionally. No additional recommends are made. Of mother with diabetes mellitus. Father was healthy. REVIEW OF SYSTEMS: CONSTITUTIONAL weakness and seizure neurologic negative. HEENT: Negative. CARDIOVASCULAR: Negative. PULMONARY: Cough and mild shortness of breath. GI: Negative. : Negative. RHEUMATOLOGIC: No joint aches, muscle aches. IMMUNOLOGICAL: Negative. ENDOCRINOLOGIC: Negative. Exam is negative Current vital signs are reviewed. Temperature is 103, heart rate 100, respiratory rate 18, blood pressure 113/74 mean 87, room-air saturation 94%. Appears in no acute distress. HEENT: Examination is grossly unremarkable. NECK: Supple, full range of motion. No adenopathy. Neck veins are flat. CARDIOVASCULAR: Examination reveals regular rhythm and rate. HEART: Rate about 100 beats per minute. It is regular rhythm and rate. S1, S2 normal. No murmur. LUNGS: Reveal clear breath sounds. No wheezes, rhonchi, or crackles. ABDOMEN: Soft, bowel sounds are heard. EXTREMITIES: Intact. No cyanosis, clubbing, or edema. SKIN: Without rash. NEUROLOGIC: Examination is brief but nonfocal. Because of his of his fever, again asked about other types of infection including DM, any symptoms of the genitourinary or GI tract. He denies all those. LABS: Reviewed. White count 5, hemoglobin 14.4, hematocrit 42.1, platelet count 104,000, PT, INR was 12.2 and 1.2, PTT was 24.2. D-dimer is 0.63. Sodium 133, potassium 3.8, chloride 102, CO2 is 22, anion gap is 9. BUN creatinine were 12 and 0.99. Lactic acid was 1. Ferritin 545, total bilirubin 1.4, AST 94, ALT 124, alkaline phosphatase 47, LDH 877. CK 171. Troponin was negative. C-reactive protein 42. N terminal proBNP was normal. Urine 1+ ketones, trace blood and rare mucus. Influenza studies were negative. Morillo virus test on July 27, 2020 was reported to be negative. Microbiologic studies including blood cultures negative. Labs are reviewed. A chest x- ray from July 28 shows no acute abnormality. His x-ray from July 28 again shows no acute findings. CT scan and chest angiography, shows no CT evidence of acute pulmonary embolism. Lung volumes shows this is acute pulmonary process. Medications are reviewed. Currently, he is on Tylenol, Zithromax, Rocephin, cholecalciferol, Lovenox, Flonase nasal spray, ibuprofen, loratadine, multivitamins, Narcan, and saline IV at 50 mL an hour. ASSESSMENT: 1. Febrile illness, episodic cough, and mild shortness of breath, of unclear etiology. COVID-19 testing was negative. Chest x-ray and CT scan were negative. This could relate to a viral syndrome/viral URI. 2. Fever of unclear etiology, without a clear source of infection. 3. Hip pain, with negative x-rays. 4. History of atrial fibrillation, remote, with previous ablation. 5. History of chest pain. PLAN: Currently, the patient looks quite stable. Even though he is having temperature elevations, he denies any significant symptomatology. He has mild shortness of breath and mild cough. The cough is nonproductive. Additional recommendations and suggestions are forthcoming. One could repeat the COVID-19 test. One should do a nasopharyngeal swab with PCR testing. Additional recommendations and suggestions are forthcoming. Pulmonary status is currently stable. No additional recommendations are made. MMODL / IJN: [id number] / MTDD
[2020-07-29] MEDS: LORATADINE 10 MG TAB PO SCH (19:45)
[2020-07-30] MEDS: SODIUM CHLORIDE 0.9% 1,000 ML IV SCH (03:07)
[2020-07-30] MEDS: AZITHROMYCIN 500 MG TAB PO SCH (08:25)
[2020-07-30] MEDS: MULTIVITAMINS, THERA 1 EACH TAB PO SCH (08:26)
[2020-07-30] MEDS: FLUTICASONE 50MCG/SPRAY NASAL 16GM EA NOSTRIL SCH (08:26)
[2020-07-30] MEDS: CHOLECALCIFEROL 1,000 UNIT TAB PO SCH (08:26)
[2020-07-30] MEDS: ENOXAPARIN 40 MG/0.4 ML SYRINGE SQ SCH (08:26)
[2020-07-30] MEDS: ACETAMINOPHEN TAB 325 MG TAB PO PRN ×2 (08:35→20:23)
[2020-07-30] MEDS: IBUPROFEN 800 MG TAB PO PRN ×2 (08:35→20:24)
[2020-07-30] MEDS ORDERED: IPRATROPIUM-ALBUTEROL 3 ML NEB INHALATION PRN (11:47)
[2020-07-30 13:10] LABS: African American GFR (CKD) 123.3 (60.0-200.0); Albumin/Globulin Ratio 1.54 (1.60-3.17); Anion Gap 11.4 mmol/L (4.00-12.00); BUN/Creat Ratio 11.25 Ratio (12.00-20.00); Calcium 8.6 mg/dL (8.7-10.3); Carbon Dioxide 26.6 mmol/L (21.6-31.8); Globulin 2.6 g/dL (1.6-3.3); Non-African American GFR(CKD) 106.4 (60.0-200.0); Potassium 3.5 mmol/L (3.5-5.5); Total Bilirubin 1.2 mg/dL (0.2-1.2); Total Protein 6.6 g/dL (6.2-8.2)
--- NOTE | 2020-07-30 14:02 | P.PN ---
Subjective Progress Note Date: 07/30/20 Principal diagnosis: Sepsis Patient is doing fairly well today. Last documented fever was yesterday morning around 7 in the morning. He still having loose stool C. diff screen was negative. He denies any abdominal pain. No significant cough. No flulike symptoms. Objective - Vital Signs Vital signs: Vital Signs Temp 99.3 F 07/30/20 07:00 Pulse 102 H 07/30/20 08:00 Resp 18 07/30/20 08:00 BP 114/77 07/30/20 07:00 Pulse Ox 97 07/30/20 07:00 Intake & Output 07/29/20 07/30/20 07/30/20 18:59 06:59 18:59 Intake Total 400 Output Total 500 Balance -500 400 Intake: Intake, IV Titration 400 Amount Sodium Chloride 0.9% 1, 400 000 ml @ 50 mls/hr IV . Q20H [facility] Rx#:[id number] Output: Urine 500 Other: # Voids 1 1 - Exam General: The patient is awake and alert, in no distress Eye: there is normal conjunctiva bilaterally. Neck: The neck is supple, there is no JVD. Cardiovascular: Normal S1-S2, no S3-S4, no murmurs. Respiratory: Lungs clear to auscultation bilaterally Gastrointestinal: Abdomen is soft, nontender Musculoskeletal: There is no pedal edema. Neurological:. Speech is normal. Skin: Skin is warm and dry - Labs CBC & Chem 7: 07/29/20 05:59 07/30/20 07:37 Labs: Abnormal Lab Results - Last 24 Hours (Table) 07/29/20 07/30/20 Range/Units 17:40 07:37 BUN/Creatinine Ratio 11.25 L (12.00-20.00) Ratio Glucose 124 H (70-110) mg/dL Plasma Lactic Acid Robert 0.5 L (0.7-2.0) mmol/L Calcium 8.6 L (8.7-10.3) mg/dL AST 127 H (14-35) U/L ALT 160 H (10-49) U/L Albumin/Globulin Ratio 1.54 L (1.60-3.17) g/dL Microbiology - Last 24 Hours (Table) 07/28/20 03:02 Blood Culture - Preliminary Blood No Growth after 48 hours 07/28/20 03:02 Blood Culture - Preliminary Blood No Growth after 48 hours Assessment and Plan Assessment: This is a 45-year-old male with no significant past medical history who presented to the emergency room with fevers, muscle aches, and cough. Patient was evaluated in the ER and admitted to the hospital for further management of his medical problems noted below. 1. Acute bacterial bronchitis, with no evidence of pneumonia on chest x-ray. Continue IV ceftriaxone 1 g daily and oral azithromycin 500 mg daily. sputum culture ordered but unable to obtain 2. Acute hypoxic respiratory failure: Resolved. Probably secondary to underlying bronchitis. D-dimer slightly above normal range is 0.63. CT angiogram negative for PE 3. Severe sepsis without septic shock, lactic acid normal. Blood culture negative to date. COVID-19 PCR done yesterday negative. Influenza screen negative. Urinalysis unremarkable. 4. Diarrhea, stool for C. diff negative 5. Persistent fever, despite antibiotic and Tylenol. Infectious disease is not available this week for consultation. 6. Mild transaminitis, maybe secondary to sepsis. Obtain acute hepatitis panel 7. DVT prophylaxis with subcu Lovenox Today, I reviewed his medication list and lab work results. Continue normal saline at 50 mL per hour. Continue supportive care and antibiotic. Appreciate talent development consultant's recommendations. Anticipate discharge home tomorrow if continued to improve
--- NOTE | 2020-07-30 15:19 | P.PN ---
Subjective Progress Note Date: 07/30/20 Principal diagnosis: Febrile illness, related to viral illness, influenza and COVID 19 ruled out 45-year-old white male patient who was admitted to the hospital on 07/29/2020 when she presented emergency department per EMS with complaints of fevers, body aches, not feeling well for 4 days prior to admission. Patient was also complaining of pain in his right hip. Denied any trauma, his right hip x-ray did not show any acute findings, his chest x-ray showed no acute findings, computed tomography scan of the chest angiography showed no CT evidence of for acute pulmonary embolism. Influenza" with COVID 19 PCR came back negative. His CBC was unremarkable with the exception of platelet count which was at 104, d- dimer 0.63, with no evidence of PE, plasma lactic acid was 0.5, electrolytes and renal profile were unremarkable. His C. difficile came back negative. Group A was negative. Patient is feeling better today, he states he still has some exertional dyspnea, patient at a T-max of 10 3F in the last 24 hours, febrile in the last 12 hours. He is on room air, he is receiving gentle IV hydration. He is breathing comfortably. Blood cultures have been negative. Objective - Vital Signs Vital signs: Vital Signs Temp 98.4 F 07/30/20 14:55 Pulse 85 07/30/20 14:55 Resp 18 07/30/20 14:55 BP 112/75 07/30/20 14:55 Pulse Ox 94 L 07/30/20 14:55 Intake & Output 07/29/20 07/30/20 07/30/20 18:59 06:59 18:59 Intake Total 400 Output Total 500 Balance -500 400 Intake: Intake, IV Titration 400 Amount Sodium Chloride 0.9% 1, 400 000 ml @ 50 mls/hr IV . Q20H [facility] Rx#:[id number] Output: Urine 500 Other: # Voids 1 1 2 - Exam GENERAL EXAM: Alert, very pleasant, 45-year-old white male on room air, with a pulse ox of 94%, comfortable in no apparent distress. HEAD: Normocephalic/atraumatic. EYES: Normal reaction of pupils, equal size. Conjunctiva pink, sclera white. NOSE: Clear with pink turbinates. THROAT: No erythema or exudates. NECK: No masses, no JVD, no thyroid enlargement, no adenopathy. CHEST: No chest wall deformity. Symmetrical expansion. LUNGS: Equal air entry with clear breath sounds CVS: Regular rate and rhythm, normal S1 and S2, no gallops, no murmurs, no rubs ABDOMEN: Soft, nontender. No hepatosplenomegaly, normal bowel sounds, no guarding or rigidity. EXTREMITIES: No clubbing, no edema, no cyanosis, 2+ pulses and upper and lower extremities. MUSCULOSKELETAL: Muscle strength and tone normal. SPINE: No scoliosis or deformity SKIN: No rashes CENTRAL NERVOUS SYSTEM: Alert and oriented -3. No focal deficits, tone is normal in all 4 extremities. PSYCHIATRIC: Alert and oriented -3. Appropriate affect. Intact judgment and insight. - Labs CBC & Chem 7: 07/29/20 05:59 07/30/20 07:37 Labs: Abnormal Lab Results - Last 24 Hours (Table) 07/29/20 07/30/20 Range/Units 17:40 07:37 BUN/Creatinine Ratio 11.25 L (12.00-20.00) Ratio Glucose 124 H (70-110) mg/dL Plasma Lactic Acid Robert 0.5 L (0.7-2.0) mmol/L Calcium 8.6 L (8.7-10.3) mg/dL AST 127 H (14-35) U/L ALT 160 H (10-49) U/L Albumin/Globulin Ratio 1.54 L (1.60-3.17) g/dL Microbiology - Last 24 Hours (Table) 07/28/20 03:02 Blood Culture - Preliminary Blood No Growth after 48 hours 07/28/20 03:02 Blood Culture - Preliminary Blood No Growth after 48 hours Assessment and Plan Plan: Assessment: #1. Febrile illness, episodic cough, intermittent shortness of breath of unc lear etiology. Likely related to a viral illness, influenza screen was negative,: 19 testing was negative, chest x-ray computed tomography scan were negative, group B strep was negative, blood cultures show no growth #2. Fever of unclear etiology, without a clear source of infection, C. diff was negative, no abdominal pain, #3. Hip pain with negative x-rays #4. History of atrial fibrillation, remote, with previous ablation Plan: Patient is feeling better, continue gentle IV hydration, COVID 19 has been ruled out, influenza is negative, C. diff is negative. Vital signs are stable. Rodolfo martines can be considered for discharge home today. I performed a history & physical examination of the patient and discussed their management with my nurse practitioner, Cathie Whaley. I reviewed the nurse practitioner's note and agree with the documented findings and plan of care. Lung sounds are positive for diminished breath sounds. The findings and the impression was discussed with the patient. I attest to the documentation by the nurse practitioner. Time with Patient: Less than 30
[2020-07-30] MEDS: IPRATROPIUM-ALBUTEROL 3 ML NEB INHALATION SCH ×2 (16:02→20:41)
[2020-07-30 19:58] LABS: Hepatitis A Antibody IgM Non-Reactive (Non-Reactive); Hepatitis B Core IgM Non-Reactive (Non-Reactive); Hepatitis B Surface Antigen Non-Reactive (Non-Reactive); Hepatitis C IgG Antibody Non-Reactive (Non-Reactive)
[2020-07-30] MEDS: LORATADINE 10 MG TAB PO SCH (20:22)
[2020-07-31] MEDS: SODIUM CHLORIDE 0.9% 1,000 ML IV SCH (02:58)
[2020-07-31] MEDS: CHOLECALCIFEROL 1,000 UNIT TAB PO SCH (06:53)
[2020-07-31] MEDS: ENOXAPARIN 40 MG/0.4 ML SYRINGE SQ SCH (06:54)
[2020-07-31] MEDS: AZITHROMYCIN 500 MG TAB PO SCH (06:54)
[2020-07-31] MEDS: FLUTICASONE 50MCG/SPRAY NASAL 16GM EA NOSTRIL SCH (06:54)
[2020-07-31] MEDS: MULTIVITAMINS, THERA 1 EACH TAB PO SCH (06:54)
[2020-07-31] MEDS: IPRATROPIUM-ALBUTEROL 3 ML NEB INHALATION SCH (07:07)
[2020-07-31 07:19] LABS: Basophils % (A) 1 %; Eosinophils # (A) 0.1 k/uL (0-0.7); Eosinophils % (A) 2 %; HCT 39.9 % (39.0-53.0); HGB 13.8 gm/dL (13.0-17.5); Lymphocytes # (A) 0.9 k/uL (1.0-4.8); Lymphocytes % (A) 25 %; MCH 31.8 pg (25.0-35.0); MCHC 34.7 g/dL (31.0-37.0); MCV 91.8 fL (80.0-100.0); Mean Platelet Volume 7.8; Monocytes # (A) 0.3 k/uL (0-1.0); Monocytes % (A) 7 %; Neutrophils # (A) 2.4 k/uL (1.3-7.7); Neutrophils % (A) 63 %; Platelet Count 116 k/uL (150-450); RBC 4.35 m/uL (4.30-5.90); RDW 13.2 % (11.5-15.5); WBC 3.7 k/uL (3.8-10.6)
[2020-07-31 07:31] VITALS: BP 118/79; PULSE 88; RESP 18; TEMP 99
[2020-07-31] MEDS: ACETAMINOPHEN TAB 325 MG TAB PO PRN (09:49)
--- NOTE | 2020-07-31 10:02 | P.DS ---
Providers Date of admission: 07/29/20 11:55 Expected date of discharge: 07/31/20 Attending physician: Anette Sanders MD Consults: 07/28/20 07:31 Consult Physician Routine Consulting Provider: Sweetie Villagomez Consult Reason/Comments: hypoxia, COVID? Do you want consulting provider notified?: Yes 07/29/20 07:41 Consult Physician Routine Consulting Provider: Yadira Ballesteros Consult Reason/Comments: fever Do you want consulting provider notified?: Yes Primary care physician: [facility] Course: This is a 45-year-old male with no significant past medical history who presented to the emergency room with fevers, muscle aches, and cough. Patient was evaluated in the ER and admitted to the hospital for further management of his medical problems noted below. 1. Acute bacterial bronchitis, with no evidence of pneumonia on chest x-ray. Started on IV ceftriaxone 1 g daily and oral azithromycin 500 mg daily. sputum culture ordered but unable to obtain. We will finish 5 days course of antibiotic with Keflex. Finished azithromycin 3 days course. 2. Acute hypoxic respiratory failure: Resolved. Probably secondary to underlying bronchitis. D-dimer slightly above normal range is 0.63. CT angiogram negative for PE 3. Severe sepsis without septic shock, lactic acid normal. Blood culture negative to date. COVID-19 PCR done yesterday negative. Influenza screen negative. Urinalysis unremarkable. 4. Diarrhea, stool for C. diff negative 5. Mild transaminitis, maybe secondary to sepsis. Acute hepatitis panel negative Patient will be discharged home in a stable condition. For further details about this hospitalization please refer to the electronic chart. Time spent on discharge > 30 minutes including counseling and coordination of Patient Condition at Discharge: Stable Plan - Discharge Summary Discharge Rx Participant: No New Discharge Prescriptions: New Cephalexin [Keflex] 500 mg PO Q6HR 1 Days #8 cap Continue Cetirizine HCl [Zyrtec] 10 mg PO DAILY@1900 Acetaminophen Tab [Tylenol] 500 mg PO Q6HR PRN PRN Reason: Pain Fluticasone Nasal [place] [Flonase Nasal [place]] 2 spr EA NOSTRIL DAILY Cholecalciferol [Vitamin D3 (25 Mcg = 1000 Iu)] 1,000 unit PO DAILY Multivitamins, Thera [Multivitamin (formulary)] 1 tab PO DAILY Discharge Medication List Acetaminophen Tab [Tylenol] 500 mg PO Q6HR PRN 04/03/18 [History] Cetirizine HCl [Zyrtec] 10 mg PO DAILY@1900 04/03/18 [History] Cholecalciferol [Vitamin D3 (25 Mcg = 1000 Iu)] 1,000 unit PO DAILY 07/28/20 [History] Fluticasone Nasal [place] [Flonase Nasal [place]] 2 spr EA NOSTRIL DAILY 07/28/20 [History] Multivitamins, Thera [Multivitamin (formulary)] 1 tab PO DAILY 07/28/20 [History] Cephalexin [Keflex] 500 mg PO Q6HR 1 Days #8 cap 07/31/20 [Rx] Follow up Appointment(s)/Referral(s): Marlin Garcia NPC [REFERRING] - 08/05/20 10:30 am Discharge Disposition: HOME SELF-CARE
[2020-07-31 11:23] LABS: African American GFR (CKD) 123.3 (60.0-200.0); Albumin/Globulin Ratio 1.67 (1.60-3.17); BUN/Creat Ratio 11.25 Ratio (12.00-20.00); Calcium 8.7 mg/dL (8.7-10.3); Globulin 2.4 g/dL (1.6-3.3); Non-African American GFR(CKD) 106.4 (60.0-200.0); Potassium 3.9 mmol/L (3.5-5.5); Total Bilirubin 1.1 mg/dL (0.3-1.2); Total Protein 6.4 g/dL (6.2-8.2)
--- NOTE | 2020-07-31 12:59 | P.PN ---
Subjective Progress Note Date: 07/31/20 Principal diagnosis: Febrile illness of unclear etiology, CoVID 19 and influenza ruled out 45-year-old white male patient who was admitted to the hospital on 07/29/2020 when she presented emergency department per EMS with complaints of fevers, body aches, not feeling well for 4 days prior to admission. Patient was also complaining of pain in his right hip. Denied any trauma, his right hip x-ray did not show any acute findings, his chest x-ray showed no acute findings, com puted tomography scan of the chest angiography showed no CT evidence of for acute pulmonary embolism. Influenza" with COVID 19 PCR came back negative. His CBC was unremarkable with the exception of platelet count which was at 104, d- dimer 0.63, with no evidence of PE, plasma lactic acid was 0.5, electrolytes and renal profile were unremarkable. His C. difficile came back negative. Group A was negative. Patient is feeling better today, he states he still has some exertional dyspnea, patient at a T-max of 10 3F in the last 24 hours, febrile in the last 12 hours. He is on room air, he is receiving gentle IV hydration. He is breathing comfortably. Blood cultures have been negative. The patient is seen today 07/31/2020 in follow-up on the regular medical floor. He is currently sitting up in a chair at the bedside. Awake and alert in no acute distress. Maintaining O2 saturations in the 90s on room air. He's been afebrile. Blood culture reveals no growth. White count 3.7. Hemoglobin 13.8. Sodium 143. Potassium 3.9. Creatinine 0.8. AST 128. ALT 165. Hepatitis screen nonreactive. Objective - Vital Signs Vital signs: Vital Signs Temp 99.0 F 07/31/20 07:00 Pulse 92 07/31/20 07:17 Resp 18 07/31/20 07:00 BP 118/79 07/31/20 07:00 Pulse Ox 94 L 07/31/20 07:00 Intake & Output 07/30/20 07/31/20 07/31/20 18:59 06:59 18:59 Intake Total 800 Output Total 500 Balance 300 Intake: Intake, IV Titration 200 Amount Sodium Chloride 0.9% 1, 200 000 ml @ 50 mls/hr IV . Q20H [facility] Rx#:[id number] Oral 600 Output: Urine 500 Other: # Voids 2 2 - Exam GENERAL EXAM: Alert, very pleasant, 45-year-old male patient on room air, comfortable in no apparent distress. HEAD: Normocephalic/atraumatic. EYES: Normal reaction of pupils, equal size. Conjunctiva pink, sclera white. NOSE: Clear with pink turbinates. THROAT: No erythema or exudates. NECK: No masses, no JVD, no thyroid enlargement, no adenopathy. CHEST: No chest wall deformity. Symmetrical expansion. LUNGS: Equal air entry with clear breath sounds CVS: Regular rate and rhythm, normal S1 and S2, no gallops, no murmurs, no rubs ABDOMEN: Soft, nontender. No hepatosplenomegaly, normal bowel sounds, no guarding or rigidity. EXTREMITIES: No clubbing, no edema, no cyanosis, 2+ pulses and upper and lower extremities. MUSCULOSKELETAL: Muscle strength and tone normal. SPINE: No scoliosis or deformity SKIN: No rashes CENTRAL NERVOUS SYSTEM: No focal deficits, tone is normal in all 4 extremities. PSYCHIATRIC: Alert and oriented -3. Appropriate affect. Intact judgment and insight. - Labs CBC & Chem 7: 07/31/20 06:34 07/31/20 06:34 Labs: Abnormal Lab Results - Last 24 Hours (Table) 07/30/20 07/31/20 07/31/20 Range/Units 07:37 06:34 06:34 WBC 3.7 L (3.8-10.6) k/uL Plt Count 116 L (150-450) k/uL Lymphocytes # 0.9 L (1.0-4.8) k/uL BUN/Creatinine Ratio 11.25 L 11.25 L (12.00-20.00) Ratio Glucose 124 H (70-110) mg/dL Calcium 8.6 L (8.7-10.3) mg/dL AST 127 H 128 H (14-35) U/L ALT 160 H 165 H (10-49) U/L Albumin/Globulin Ratio 1.54 L (1.60-3.17) g/dL Microbiology - Last 24 Hours (Table) 07/28/20 03:02 Blood Culture - Preliminary Blood No Growth after 72 hours 07/28/20 03:02 Blood Culture - Preliminary Blood No Growth after 72 hours 07/29/20 17:40 Blood Culture - Preliminary Blood No Growth after 24 hours Assessment and Plan Assessment: 1 Febrile illness, episodic cough, intermittent shortness of breath of unclear etiology. Likely related to a viral illness, influenza screen was negative,: 19 testing was negative, chest x-ray computed tomography scan were negative, group B strep was negative, blood cultures show no growth 2 Fever of unclear etiology, without a clear source of infection, C. diff was negative, no abdominal pain, 3 Hip pain with negative x-rays 4 History of atrial fibrillation, remote, with previous ablation Plan: The patient was seen and evaluated by Dr. Culver He is cleared for discharge from the pulmonary standpoint I, the cosigning physician, performed a history & physical examination of the patient. Lungs sounds are clear. Maintaining good O2 saturations in the 90s on room air. I discussed the assessment and plan of care with my nurse practitioner, Ramona Mendoza. I attest to the above note as dictated by her.
== END 2020-07-31 11:32 | disposition home or self-care (01) ==
LOC: EC 02:51 → 4SSUR 04:46 → OBSVTOIN 07-29 11:55 → INTOOBSV 07-29 11:55 → 4SSUR 07-30 22:45 → UNDODISIN 07-31 11:32
PROVIDERS: ADMIT Internal Medicine; ATTEND Internal Medicine
DX: A41.9 Sepsis, unspecified organism (principal); J20.8 Acute bronchitis due to other specified organisms; R65.20 Severe sepsis without septic shock; J96.01 Acute respiratory failure with hypoxia; R79.1 Abnormal coagulation profile; R19.7 Diarrhea, unspecified; R74.01 Elevation of levels of liver transaminase levels; I48.91 Unspecified atrial fibrillation; M25.551 Pain in right hip; F41.9 Anxiety disorder, unspecified; Z20.828 Contact with and (suspected) exposure to other viral communicable diseases; Z87.891 Personal history of nicotine dependence; Z87.438 Personal history of other diseases of male genital organs; Z90.49 Acquired absence of other specified parts of digestive tract; Z98.890 Other specified postprocedural states; Z98.52 Vasectomy status; Z87.19 Personal history of other diseases of the digestive system; Z79.899 Other long term (current) drug therapy; Z83.3 Family history of diabetes mellitus; Z82.49 Family history of ischemic heart disease and other diseases of the circulatory system
CPT/HCPCS: 96361 ×2; 96366; 96372 ×4; 96365; 99285; 36415; 94640 ×2; 93005; 85379; 83880; 80053 ×3; 80074; 85652; 82728; 82550; 83605 ×2; 83615; 84484; 85025 ×3; 85610; 85730; 86140; 81001; 87040 ×2; 87324; 87502; 73502; 71045; 71275; G0378 ×4; J1650 ×4; J0696 ×3; Q9967; 96360

== ENCOUNTER 2020-09-07 08:47 | Emergency (ER) | payer OTHER ==
[2020-09-07 08:52] VITALS: TEMP 99
[2020-09-07] MEDS ORDERED: ACETAMINOPHEN TAB 500 MG TAB PO STA (08:59)
--- NOTE | 2020-09-07 09:02 | ED ---
Fall HPI - General Chief Complaint: Fall Stated Complaint: [facility]-fall Time Seen by Provider: 09/07/20 08:53 Source: patient Mode of arrival: ambulatory - History of Present Illness Initial Comments: 45-year-old male patient presents to the emergency department today for evaluation after experiencing a fall. Patient states that he was descending down a building on a rope using a new device. Patient states he pushed a button and was quick released so he fell approximately 10-15 feet landing on his feet. Patient states that he immediately had pain and burning in both feet and toes. States he is not having pain to his left ankle, low back, and left hip as well. States he is having some mild tingling sensation to the anterior ankles. Denies hitting his head or losing consciousness with the injury. Denies taking any medication for pain. He does not take any blood thinning medications. Patient denies any headache, neck pain, chest pain, shortness of breath, dizziness, weakness, abdominal pain, nausea, vomiting, or difficulties with bowel movements or urination. - Related Data Home Medications Medication Instructions Recorded Confirmed Acetaminophen Tab [Tylenol] 500 mg PO Q6HR PRN 04/03/18 09/07/20 Previous Rx's Medication Instructions Recorded Ibuprofen [Motrin] 600 mg PO Q8HR PRN #30 tab 09/07/20 Allergies Allergy/AdvReac Type Severity Reaction Status Date / Time No Known Allergies Allergy Verified 09/07/20 09:32 Review of Systems ROS Statement: Those systems with pertinent positive or pertinent negative responses have been documented in the HPI. ROS Other: All systems not noted in ROS Statement are negative. Past Medical History Past Medical History: Atrial Fibrillation, Chest Pain / Angina Additional Past Medical History / Comment(s): "lumps in testicles" History of Any Multi-Drug Resistant Organisms: None Reported Past Surgical History: No Surgical Hx Reported, Cholecystectomy, Heart Catheterization Additional Past Surgical History / Comment(s): vasectomy, salivary gland stone removal right neck Past Anesthesia/Blood Transfusion Reactions: No Reported Reaction Past Psychological History: Anxiety Smoking Status: Former smoker Past Alcohol Use History: Occasional Past Drug Use History: None Reported - Past Family History Mother Family Medical History: Diabetes Mellitus Father Additional Family Medical History / Comment(s): hypotension. General Exam Limitations: no limitations General appearance: alert, in no apparent distress, other (This is a well- developed, well-nourished adult male patient in no acute distress. Vital signs upon presentation temperature 99.0F, pulse 90, respirations 18, blood pressure 158/92, pulse ox 99% on room air.) Eye exam: Present: normal appearance, PERRL, EOMI. Absent: scleral icterus, conjunctival injection, periorbital swelling ENT exam: Present: normal exam, normal oropharynx, mucous membranes moist Neck exam: Present: normal inspection, full ROM, other (Nontender, no step-off, no deformity to firm midline palpation of the posterior cervical spine. Full range of motion without pain or limitation.). Absent: tenderness, meningismus, lymphadenopathy Respiratory exam: Present: normal lung sounds bilaterally. Absent: respiratory distress, wheezes, rales, rhonchi, stridor Cardiovascular Exam: Present: regular rate, normal rhythm, normal heart sounds. Absent: systolic murmur, diastolic murmur, rubs, gallop, clicks GI/Abdominal exam: Present: soft, normal bowel sounds. Absent: distended, tenderness, guarding, rebound, rigid Extremities exam: Present: normal inspection, full ROM, tenderness (Bilateral heel), normal capillary refill, other (Skin to the feet and ankles are pink, warm, dry. Cap refills less than 3 seconds. Pedal and posttibial pulses are 2+ and equal bilaterally). Absent: pedal edema, joint swelling, calf tenderness Back exam: Present: normal inspection, vertebral tenderness (Lower thoracic and upper lumbar tenderness.), other (No bony step-off or deformity noted to firm midline palpation of the thoracic and lumbar spines.) Neurological exam: Present: alert, oriented X3, CN II-XII intact Psychiatric exam: Present: normal affect, normal mood Skin exam: Present: warm, dry, intact, normal color. Absent: rash Course Vital Signs 09/07/20 09/07/20 09/07/20 08:50 10:58 12:22 Temperature 99.0 F Pulse Rate 90 82 78 Respiratory 18 17 18 Rate Blood Pressure 158/92 124/78 124/84 O2 Sat by Pulse 99 98 97 Oximetry 09/07/20 12:24 Temperature 99.0 F Pulse Rate 78 Respiratory 18 Rate Blood Pressure 124/84 O2 Sat by Pulse 97 Oximetry Medical Decision Making - Medical Decision Making 45-year-old male patient presented to the emergency department today for evaluation after a 10-15 foot fall from a rope. Physical examination did reveal tenderness over the bilateral heels, left lateral malleolus. He did also have some lower thoracic and upper lumbar vertebral tenderness. He did not hit his head or lose consciousness. X-rays of the thoracic spine, lumbosacral spine, and pelvis were obtained and were negative for any acute abnormalities. There were some osteochondral deformities to the talar bilaterally they appear to be chronic. Case is discussed with the orthopedic physical therapist to ensure that this did not require emergent attention, he agrees that this is most likely old in recommends follow-up outpatient. I did discuss findings and results with the patient. He was given a splint for the left ankle. We'll be discharged follow- up with orthopedics in his primary care physician for recheck in 1-2 days. Instructed to follow-up with [facility] as needed. Return parameters discussed in detail. He verbalizes understanding and agrees with this plan. - Radiology Data Radiology results: report reviewed, image reviewed 5 views of the lumbosacral spine and thoracic spine are obtained. Report reviewed in its entirety. Impression by Dr. Martins shows thoracic spine shows slight limitation in detail visualization of the uppermost thoracic vertebral bodies. Minimal scattered endplate spondylosis in the thoracic spine. No evidence of vertebral compression collapse or malalignment. Spine shows no vertebral compression collapse or malalignment. Single view of the pelvis is obtained. Report was reviewed in its entirety. Impression by Dr. Martins shows no acute osseous abnormalities seen. X-ray of the left ankle and foot were obtained. Report was reviewed in its entirety. Impression by Dr. Martins shows age indeterminate focal osteochondral lesion involving the medial talar dome measuring 1 cm wide and up to 2 mm of articular surface depression. Left foot shows chronic-appearing bony deformity and hyper stenosis involving the medial aspect of the first TMT joint suspected secondary remote injury. No acute osseous abnormalities seen. X-ray of the right foot was obtained and showed no acute osseous abdomen Disposition Clinical Impression: Contusion of foot or heel, Low back strain Disposition: HOME SELF-CARE Condition: Good Instructions (If sedation given, give patient instructions): Low Back Strain (ED), Contusion in Adults (ED) Additional Instructions: Follow-up with orthopedic physical therapist for further evaluation as soon as possible. Take Tylenol Motrin for pain control. Rest. Follow-up with your primary care physician for recheck in 1-2 days. Return to the emergency department immediately for any new, worsening, or concerning symptoms. Prescriptions: Ibuprofen [Motrin] 600 mg PO Q8HR PRN #30 tab PRN Reason: Pain Is patient prescribed a controlled substance at d/c from ED?: No Referrals: Marlin Garcia NPC [Primary Care Provider] - 1-2 days Robi Biggs MD [STAFF PHYSICIAN] - 1-2 days Time of Disposition: 11:57
--- NOTE | 2020-09-07 09:59 | XR ---
EXAMINATION TYPE: XR lumbosacral spine 5 views, XR thoracic spine complete 3 views DATE OF EXAM: 09/07/2020 Comparison: None Clinical History: 45-year-old male with pain after Fall 10-15 feet Findings: Thoracic spine: 12 rib-bearing thoracic vertebral bodies. All pedicles are visualized. Limited detail visualization o f the uppermost thoracic vertebral bodies. Otherwise, minimal scattered endplate spondylosis is prese nt in the thoracic spine. Vertebral body heights are preserved and alignment is maintained. Lumbar spine: No pars interarticularis defect. Vertebral body heights are preserved and alignment is maintained. Impression: 1. Thoracic spine: Slight limitation in detail visualization of the uppermost thoracic vertebral bodi es. Minimal scattered endplate spondylosis in the thoracic spine. No evident vertebral compression co llapse or malalignment. 2. Lumbar spine: No vertebral compression collapse or malalignment.
--- NOTE | 2020-09-07 10:00 | XR ---
EXAMINATION TYPE: XR pelvis AP view DATE OF EXAM: 09/07/2020 COMPARISON: NONE HISTORY: 45-year-old male pain after falling 10 to 15 ft. FINDINGS: SI joints appear symmetric and intact as does the pubic symphysis. Both hips are symmetric. No acute fracture, subluxation, dislocation. IMPRESSION: No acute osseous abnormality seen.
--- NOTE | 2020-09-07 10:17 | XR ---
EXAMINATION TYPE: XR ankle complete 3 views LT, XR foot complete 3 views bilateral DATE OF EXAM: 09/07/2020 COMPARISON: NONE HISTORY: 45-year-old male pain after falling 10 to 15 ft. FINDINGS: Left ankle and foot: There is a focal osteochondral deformity along the medial talar dome measuring 1 cm wide with articul ar surface depression up to 2 mm. Ankle mortise appears congruent with preservation of the distal tib iofibular overlap. Subtalar joint appears aligned. Smooth delineation to the Achilles tendon. There is some bony hyperostosis and chronic appearing bony deformity at the medial aspect of the firs t TMT joint. Lateral angulation deformity at the second PIP joint also appears chronic. No acute frac ture otherwise seen. Right foot: Bipartite tibial sesamoid. Lateral angulation deformity at the second DIP joint appears chronic. No a cute fracture, subluxation, or dislocation seen. Smooth delineation to the Achilles tendon. IMPRESSION: 1. Left ankle: Age indeterminate focal osteochondral lesion involving the medial talar dome measuring 1 cm wide with up to 2 mm of articular surface depression. MRI can better characterize. 2. Left foot: Chronic appearing bony deformity and hyperostosis involving the medial aspect of the fi rst TMT joint suspected sequela of remote injury. No acute osseous abnormality seen. 3. Right foot: No acute osseous abnormality seen.
[2020-09-07] MEDS ORDERED: IBUPROFEN 600 MG STARTER PACK 4 TAB BTL PO STA (11:56)
[2020-09-07 12:24] VITALS: BP 124/84; PULSE 78; RESP 18
== END 2020-09-07 12:31 | disposition home or self-care (01) ==
LOC: EC 08:47
DX: S90.32XA Contusion of left foot, initial encounter (principal); S90.31XA Contusion of right foot, initial encounter; S39.012A Strain of muscle, fascia and tendon of lower back, initial encounter; M54.6 Pain in thoracic spine; Z87.891 Personal history of nicotine dependence; W17.89XA Other fall from one level to another, initial encounter; Y93.89 Activity, other specified
CPT/HCPCS: 29515; 72072; 72110; 72170; 99284

== ENCOUNTER → 2021-03-17 | Outpatient (CLI) | payer OTHER ==
--- NOTE | 2021-03-18 08:14 | MR ---
EXAMINATION TYPE: MR lumbar spine wo/w con DATE OF EXAM: 03/17/2021 COMPARISON: Radiograph 09/07/2020 HISTORY: 45-year-old male M54.42, Left and right hip pain for 6 months due to work injury. TECHNIQUE: Multiplanar, multisequence images of the lumbar spine were obtained before and after admin istration of 12 mL intravenous Gadavist gadolinium contrast. FINDINGS: Vertebral body heights are preserved and alignment is maintained. A couple fatty matrix hemangiomas, particularly within L2 and L5 vertebral bodies. No suspicious bone marrow replacement. Very minimal early intervertebral disc desiccation at L3-L4. Mild facet arthropathy lower lumbar spine. Conus medullaris is at L1-L2, within normal limits. There is mild prominence to the epidural fat within the lower lumbar spine attenuating the thecal sac . Changes are superimposed on a congenital spinal canal narrowing with AP canal dimension of 1.1 cm i n the lumbar spine. At T12-L1, no significant canal or foraminal stenosis. At L1-L2, no significant canal or foraminal stenosis. At L2-L3, no significant canal or foraminal stenosis. At L3-L4, minimal bulging disc not significantly accentuating the mild congenital canal narrowing. Mi ld facet degenerative change. Changes result in mild left and minimal right neuroforaminal narrowing. At L4-L5, mild facet degenerative change. Minimal disc bulge and osteophytes. Changes result in mild inferior foraminal narrowing on the left and minimal on the right. No significant spinal canal stenos is. At L5-S1, mild posterior disc bulge. Mild facet degenerative change. Mild left and minimal inferior r ight neuroforaminal narrowing. No significant spinal canal stenosis. No prevertebral or paravertebral soft tissue abnormality seen. No abnormal enhancement within the spinal canal. IMPRESSION: 1. Mild congenital spinal canal stenosis with AP canal dimension of 1.1 cm in the lumbar spine. Sligh t accentuation of the thecal sac narrowing in the lower lumbar spine due to some prominent epidural f at. No significant thecal sac compression or spinal canal stenosis. 2. Minimal disc bulging off to the size. Mild early intervertebral disc desiccation at L3-L4. Scatter ed mild facet arthropathy. 3. Changes contribute to variable minimal to mild neural foraminal narrowing as outlined above, great est on the left at L3-L4. No high-grade foraminal compromise.
== END | disposition home or self-care (01) ==
LOC: RADMRIMAIN 15:10
PROVIDERS: ATTEND Nurse Practitioner Adult Health
DX: M51.27 Other intervertebral disc displacement, lumbosacral region (principal); M47.817 Spondylosis without myelopathy or radiculopathy, lumbosacral region; M99.73 Connective tissue and disc stenosis of intervertebral foramina of lumbar region; M48.061 Spinal stenosis, lumbar region without neurogenic claudication
CPT/HCPCS: 72158; A9585